=== PATIENT | female | born 1955 | race Caucasian/White ===

== ENCOUNTER 2017-06-03 07:19 | Emergency (ER) | payer BC ==
[2017-06-03 08:00] VITALS: BP 138/82
--- NOTE | 2017-06-03 12:05 | UC ---
Veena Boone Nilda, scribed for Mera Jorgensen DO on 06/03/17 at 0809 . Dizzy HPI HPI Summary: This patient is a 62 year old F presenting to [facility] [place] with a chief complaint of constant lightheadedness and nausea today. Two days ago, pt c/o headache and vomiting. Yesterday morning, pt had dizziness. She does not remember experiencing any room spinning. She is not experiencing room spinning currently but continues to have nausea, cordova and dizziness(not "feeling right". Symptoms were alleviated by lying down and aggravated by standing. Patient reports weakness and fatigue. Patient denies syncope, CP, SOB, unsteadiness, speech issues, sore throat, and loss of appetite. Pt states that during previous similar episodes (wherein she was dx with vertigo)she never really felt the room was spinning but had a "funny feeling in her head." PMHx includes thyroid disorder, arthritis, and questionable dx of vertigo. - History Of Current Complaint Chief Complaint: UCGeneralIllness Stated Complaint: VOMITTING Time Seen by Provider: 06/03/17 07:44 Hx Obtained From: Patient Onset/Duration: Sudden Onset, Lasting Days - 2 days, Still Present Timing: Constant Severity Currently: Moderate Character: Lightheaded, Weak, Dizzy Aggravating Factor(s): Supine To Erect Alleviating Factor(s): Rest Associated Signs And Symptoms: Positive: Nausea, Vomiting. Negative: Chest Pain , SOB - Allergies/Home Medications Allergies/Adverse Reactions: Allergies Allergy/AdvReac Type Severity Reaction Status Date / Time Sulfa Drugs Allergy Intermediate Rash Verified 06/03/17 07:28 Acetaminophen [From Percocet] Allergy N/V Verified 06/03/17 07:28 Hydrocodone [From Vicodin] Allergy N/V Verified 06/03/17 07:28 Oxycodone [From Percocet] Allergy N/V Verified 06/03/17 07:28 Tramadol Allergy N/V Verified 06/03/17 07:28 Home Medications: Home Medications celeCOXIB CAP* [Celebrex CAP*] 200 mg PO DAILY 06/03/17 [History Confirmed 06/03] PMH/Surg Hx/FS Hx/Imm Hx Endocrine History: Thyroid Disease Neurological History: Other - vertigo Other Neurological History: questionable dx of vertigo - Surgical History Surgical History: Yes Surgery Procedure, Year, and Place: 11/2013 [place] [facility] [place], [facility]. 10/2015 [place] [facility] [place] [facility] [place] [facility] [place] Ulnar Nerve Decompression. 1984 [place] [facility] [place] [facility] [place] - Family History Known Family History: Positive: Cardiac Disease, Other - breast CA - Social History Alcohol Use: None Substance Use Type: None Smoking Status (MU): Never Smoked Tobacco Have You Smoked in the Last Year: No - Immunization History Most Recent Influenza Vaccination: Not UTD Most Recent Tetanus Shot: UNKNOWN Most Recent Pneumonia Vaccination: NONE Review of Systems Constitutional: Fatigue Respiratory: Other - negative SOB Cardiovascular: Other - negative CP Gastrointestinal: Vomiting, Nausea, Other - negative loss of appetite Neurological: Headache, Weakness, Other - dizziness, lightheadedness; negative syncope, unsteadiness, speech issues All Other Systems Reviewed And Are Negative: Yes Physical Exam Triage Information Reviewed: Yes Appearance: Well-Appearing, Well-Nourished, Pain Distress - mild Vital Signs: Initial Vital Signs Temp 98.4 F 06/03/17 07:21 Pulse 68 06/03/17 07:21 Resp 18 06/03/17 07:21 BP 177/74 06/03/17 07:21 Pulse Ox 96 06/03/17 07:21 Vital Signs Reviewed: Yes Eyes: Positive: Conjunctiva Clear. Negative: Discharge ENT: Positive: Hearing grossly normal, TMs normal. Negative: Muffled voice, Hoarse voice Neck exam: Normal Neck: Positive: Supple Respiratory: Positive: Lungs clear, Normal breath sounds, No respiratory distress, No accessory muscle use Cardiovascular: Positive: RRR, No Murmur Abdomen Description: Positive: Nontender, Soft. Negative: Distended, Guarding Bowel Sounds: Positive: Present Musculoskeletal Exam: Normal Neurological: Positive: Alert, Muscle Tone Normal, Other: - A&Ox3, CN II-XII INTACT, SENSORY MOTOR INTACT, REFLEXES INTACT, NO CEREBELLAR SIGNS, FACIAL SYMMETRY, NEGATIVE ROMBERG, NORMAL GAIT Psychological Exam: Normal Psychological: Positive: Age Appropriate Behavior Skin Exam: Normal Skin: Positive: Other - warm, dry, normal color Diagnostics - EKG Cardiac Rate: NL Cardiac Rhythm: Sinus: Normal - at 64 bpm Ectopy: None ST Segment: Normal Dizzy Course/Dx - Course Course Of Treatment: This patient is a 62 year old F presenting to [facility] with a chief complaint of constant lightheadedness and nausea today. Two days ago, pt c /o headache and vomiting. Yesterday morning, pt had dizziness. She is unsure if the room was spinning. Symptoms were alleviated by lying down and aggravated by standing. Patient reports weakness and fatigue. Patient denies syncope, CP, SOB , unsteadiness, speech issues, sore throat, and loss of appetite. Pt states that during previous similar episodes she never really felt the room was spinning but had a funny feeling in her head. PMHx includes thyroid disorder, arthritis, and vertigo. Pending EKG. An EKG reveals NSR, 64 bpm, no ectopy, and no ST changes. [address] Valderrama (ED Physcician) to give report on pt. Pt is stable and will be transferred to ED with a diagnosis of lightheadedness, nausea, vomiting, and headache. She was given the following D/ C instructions: You have headache, dizziness, and nausea. Those symptoms make us concerned that there may be something going on with your heart or your brain. We want to make sure that you are safe. So, you need a complete evaluation in the emergency room. We have recommended that you go to the ER by ambulance so that if something happens between here and there you would have a trained professional to help you. You have refused. We have also recommended that you chew baby aspirin before you leave because that is beneficial in for people having heart problems. You have refused this as well. The risks associated with your condition are damage to the heart, cardiac arrest, cardiac arrhythmia, permanent neurological deficit, brain damage, and . Pt understands and is agreeable with this plan. - Differential Dx/Diagnosis Provider Diagnoses: lightheadedness, nausea, vomiting, and headache. - Physician Notifications Discussed Patient Care With: Mayco Valderrama - ED Physician Time Discussed With Above Provider: 07:36 Instructed by Provider To: Other - gave report on pt. Discharge - Discharge Plan Condition: Stable Disposition: AGAINST MEDICAL ADVICE Patient Education Materials: Lightheadedness (ED) Referrals: Luanne Khanna MD [Primary Care Provider] - Additional Instructions: You have headache, dizziness, and nausea. Those symptoms make us concerned that there may be something going on with your heart or your brain. We want to make sure that you are safe, so you need a complete evaluation in the emergency room. We have recommended that you go to the ER by ambulance so that if something happens between here and there you would have a trained professional to help you. You have refused. We have also recommended that you chew baby aspirin before you leave because that is beneficial for people having heart problems. You have refused this as well. The risks associated with your condition are damage to the heart, cardiac arrest, cardiac arrhythmia, permanent neurological deficit, brain damage, and . The documentation as recorded by the Veena gutierrez Nilda accurately reflects the service I personally performed and the decisions made by me, Mera Jorgensen DO.
== END 2017-06-03 08:17 | disposition left against medical advice (07) ==
LOC: UCEAST 07:19
DX: R42 Dizziness and giddiness (principal); R11.2 Nausea with vomiting, unspecified; R51 Headache; R94.31 Abnormal electrocardiogram [ECG] [EKG]; Z88.2 Allergy status to sulfonamides; Z88.5 Allergy status to narcotic agent
CPT/HCPCS: 93005; 99212; G0463

== ENCOUNTER 2017-06-03 08:39 | Emergency (ER) | payer BC ==
[2017-06-03] MEDS ORDERED: Ondansetron INJ* 2 MG/ML VIAL IV ONE (11:15)
[2017-06-03] MEDS ORDERED: NS 0.9% 1000 ML* 1,000 ML IV ONE (11:15)
[2017-06-03 11:41] LABS: Hematocrit 49 % (35-47); Hemoglobin 16.5 g/dl (12.0-16.0); Mean Corpuscular HGB Conc 34 g/dl (31-36); Mean Corpuscular Hemoglobin 31 pg (27-31); Mean Corpuscular Volume 91 fL (80-97); Mean Platelet Volume 8 um3 (7.4-10.4); Red Blood Count 5.37 10^6/ul (4.0-5.4); Red Cell Distribution Width 14 % (10.5-15); White Blood Count 7.2 10^3/ul (3.5-10.8)
--- NOTE | 2017-06-03 11:44 | RAD ---
INDICATION: Dizziness and vomiting. COMPARISON: Comparison is made with a prior chest x-ray study from October 17, 2015. TECHNIQUE: A portable view of the chest was obtained. FINDINGS: Cardiac and mediastinal contours appear to be within normal limits. The lungs are clear. No pleural effusion is seen. IMPRESSION: NO EVIDENCE FOR ACUTE DISEASE.
--- NOTE | 2017-06-03 11:52 | RAD ---
INDICATION: Dizziness COMPARISON: None TECHNIQUE: Noncontrast axial source images were acquired from the skull base to the vertex. FINDINGS: Ventricles/sulci: The ventricles and cisterns are normal in size and configuration for age. Brain parenchyma: There is no focal parenchymal finding, evidence of intracranial mass, or intracranial mass effect. Intracranial hemorrhage:None. Extra-axial spaces: There are no abnormal extra axial fluid collections or evidence of extra-axial mass. Calvarium: There is no calvarial fracture or other calvarial abnormality. Scalp: There is no evidence of scalp or extracalvarial soft tissue abnormality. Paranasal sinuses/mastoid: The paranasal sinuses and mastoid air cells are clear. Other: None. IMPRESSION: NEGATIVE EXAMINATION
[2017-06-03 11:54] LABS: Albumin 4.3 g/dL (3.2-5.2); BUN/Creatinine Ratio 24.7 (8-20); C Reactive Protein 5.1 mg/L (< 5.00); Calcium 9.4 mg/dL (8.6-10.3); EGFR African American 104.6 (>60); EGFR Non-African American 81.3 (>60); Globulin 3.1 g/dL (2-4); Magnesium 2.5 mg/dL (1.9-2.7); Potassium 3.7 mmol/L (3.5-5.0); Total Bilirubin 1.5 mg/dL (0.2-1.0); Total Protein 7.4 g/dL (6.4-8.9)
[2017-06-03 13:43] VITALS: BP 131/61
--- NOTE | 2017-06-03 21:10 | ED ---
Ange Boone Alfonso, scribed for Radha Owens MD on 06/03/17 at 1028 . Dizziness - HPI Summary HPI Summary: This patient is a 62 year old F presenting referred from [facility] to [facility] with a chief complaint of dizziness since 2 days ago, improved since yesterday. She states my head just doesnt feel right it feels funny. I have had vertigo before and I thought it was something like motion sickness. Pt was evaluated in and advised to come to the ED via ambulance and to have ASA and pt refused both, arrived by private car. The patient rates the pain 6/10 in severity. Symptoms aggravated by standing up. Symptoms alleviated by lying down. Patient reports vomiting, generalized weakness, and fatigue. Patient denies abdominal pain, headache, fever, syncope, CP, SOB, cough, unsteadiness, speech issues, sore throat, and loss of appetite. She was seen at [facility] earlier today with provider diagnoses of lightheadedness, nausea, vomiting, and headache. Patient reports she is always bradycardic between 45 to 65 BPM and she is aware of this because of her her fit bit. - History Of Current Complaint Chief Complaint: EDDizziness Stated Complaint: DIZZINESS -CC TRANSFER Hx Obtained From: Patient Onset/Duration: Still Present Timing: Constant Severity Initially: Moderate Severity Currently: Moderate - 6/10 pain Character: Lightheaded Aggravating Factor(s): Position Change Alleviating Factor(s): Lying Down Associated Signs And Symptoms: Positive: Vomiting, Other: - vomiting, generalized weakness, and fatigue. Patient denies abdominal pain, headache, fever, syncope, CP, SOB, cough, unsteadiness, speech issues, sore throat, and loss of appetite. She was seen at [facility] earlier today with provider diagnoses of lightheadedness, nausea, vomiting, and headache. - Allergies/Home Medications Allergies/Adverse Reactions: Allergies Allergy/AdvReac Type Severity Reaction Status Date / Time Sulfa Drugs Allergy Intermediate Rash Verified 06/03/17 07:28 Acetaminophen [From Percocet] Allergy N/V Verified 06/03/17 07:28 Hydrocodone [From Vicodin] Allergy N/V Verified 06/03/17 07:28 Oxycodone [From Percocet] Allergy N/V Verified 06/03/17 07:28 Tramadol Allergy N/V Verified 06/03/17 07:28 Home Medications: Home Medications Calcium 500 mg PO DAILY 06/03/17 [History Confirmed 06/03/17] Levothyroxine TAB* [Synthroid TAB*] 50 mcg PO QAM 06/03/17 [History Confirmed ] Multivitamins/Minerals TAB* [Theragran/minerals TAB*] 1 tab PO DAILY 06/03/17 [ History Confirmed 06/03/17] Omeprazole CAP* [Prilosec CAP* 20 MG] 20 mg PO DAILY 06/03/17 [History Confirmed 06/03/17] PMH/Surg Hx/FS Hx/Imm Hx Endocrine/Hematology History: Reports: Hx Thyroid Disease Denies: Hx Diabetes Cardiovascular History: Reports: Hx Hypercholesterolemia Denies: Hx Hypertension, Hx Pacemaker/ICD, Other Cardiovascular Problems/ Disorders Respiratory History: Reports: Hx Sleep Apnea - current CPAP user, compliant GI History: Reports: Hx Gastroesophageal Reflux Disease - CONTROL WITH MEDS Denies: Other GI Disorders History: Denies: Hx Benign Prostatic Hyperplasia Musculoskeletal History: Reports: Hx Arthritis - Osteoarthritis of knees,, Hx Orthopedic Injury - left knee miniscus tear, repaired Denies: Other Musculoskeletal History Sensory History: Reports: Hx Contacts or Glasses - Reading glasses Denies: Hx Glaucoma, Hx Hearing Aid Opthamlomology History: Reports: Hx Contacts or Glasses - Reading glasses Denies: Hx Glaucoma Neurological History: Denies: Other Neuro Impairments/Disorders Psychiatric History: Reports: Hx Panic Disorder - Cancer History Hx Chemotherapy: No Hx Radiation Therapy: No - Surgical History Surgery Procedure, Year, and Place: 11/2013 LEFT KNEE MENISCUS REPAIR, [facility] [place]. 2014 RIGHT TOTAL KNEE REPLACEMENT, [facility] [place]. 10/2015 LEFT TOTAL KNEE REPLACEMENT, [facility] [place]. BILATERAL CARPAL TUNNEL RELEASE, [facility] [place]. 1995 HYSTERECTOMY, [facility] [place]; Right Ulnar Nerve Decompression. 1984 CHOLECYSTECTOMY WITH APPENDECTOMY, [facility] [place]. 1961 TONSILLECTOMY, [facility] [place] Hx Anesthesia Reactions: Yes - USUALLY B/P DROPS; 03/2015-VOMITING Infectious Disease History: No Infectious Disease History: Denies: Traveled Outside the [place] in Last 30 Days - Family History Known Family History: Positive: Cardiac Disease, Other - breast [place] - Social History Lives: With Family Alcohol Use: None Hx Substance Use: No Substance Use Type: Reports: None Hx Tobacco Use: No Smoking Status (MU): Never Smoked Tobacco Have You Smoked in the Last Year: No Review of Systems Positive: Fatigue, Other - generalized weakness. Negative: Fever Eyes: Negative Negative: Sore Throat Negative: Chest Pain Negative: Shortness Of Breath, Cough Positive: Vomiting. Negative: Abdominal Pain Skin: Negative Neurological: Other - dizziness; negative unsteadiness Negative: Headache, Syncope Psychological: Normal All Other Systems Reviewed And Are Negative: Yes Physical Exam Triage Information Reviewed: Yes Vital Signs On Initial Exam: Initial Vitals Temp Pulse Resp BP Pulse Ox 98.7 F 56 20 165/83 98 06/03/17 08:56 06/03/17 08:56 06/03/17 08:56 06/03/17 08:56 06/03/17 08:56 Vital Signs Reviewed: Yes Appearance: Positive: No Pain Distress, Ill-Appearing - Mild, Obese Skin: Positive: Warm, Skin Color Reflects Adequate Perfusion Head/Face: Positive: Normal Head/Face Inspection Eyes: Positive: Conjunctiva Clear ENT: Positive: Normal ENT inspection, Pharynx normal, TMs normal Neck: Positive: Supple, Nontender, No Lymphadenopathy Respiratory/Lung Sounds: Positive: Clear to Auscultation, Breath Sounds Present , Other - no respiratory distress Cardiovascular: Positive: RRR, Pulses are Symmetrical in both Upper and Lower Extremities, Other - brisk capillary refill. Negative: Murmur Abdomen Description: Positive: Nontender, No Organomegaly, Soft Bowel Sounds: Positive: Present Musculoskeletal: Positive: Strength/ROM Intact Neurological: Positive: Alert, Oriented to Person Place, Time, Facial Symmetry, Speech Normal, Other - muscle tone normal, facial symmetry, speech normal, sensory/motor intact Psychiatric: Positive: Normal - Byron Coma Scale Best Eye Response: 4 - Spontaneous Best Motor Response: 6 - Obeys Commands Best Verbal Response: 5 - Oriented Coma Scale Total: 15 Diagnostics - Vital Signs Vital Signs Temp Pulse Resp BP Pulse Ox 06/03/17 08:56 98.7 F 56 20 165/83 98 - Laboratory Lab Results: Lab Results 06/03/17 06/03/17 06/03/17 Range/Units 11:26 11:26 11:26 WBC 7.2 (3.5-10.8) 10^3/ul RBC 5.37 (4.0-5.4) 10^6/ul Hgb 16.5 H (12.0-16.0) g/dl Hct 49 H (35-47) % MCV 91 (80-97) fL MCH 31 (27-31) pg MCHC 34 (31-36) g/dl RDW 14 (10.5-15) % Plt Count 299 (150-450) 10^3/ul MPV 8 (7.4-10.4) um3 Neut % (Auto) 61.2 (38-83) % Lymph % (Auto) 30.9 (25-47) % Terrell % (Auto) 6.5 (1-9) % Eos % (Auto) 0.7 (0-6) % Baso % (Auto) 0.7 (0-2) % Absolute Neuts (auto) 4.4 (1.5-7.7) 10^3/ul Absolute Lymphs (auto) 2.2 (1.0-4.8) 10^3/ul Absolute Monos (auto) 0.5 (0-0.8) 10^3/ul Absolute Eos (auto) 0.1 (0-0.6) 10^3/ul Absolute Basos (auto) 0 (0-0.2) 10^3/ul Absolute Nucleated RBC 0.01 10^3/ul Nucleated RBC % 0.1 INR (Anticoag Therapy) 1.02 (0.77-1.02) Sodium 138 (133-145) mmol/L Potassium 3.7 (3.5-5.0) mmol/L Chloride 104 (101-111) mmol/L Carbon Dioxide 25 (22-32) mmol/L Anion Gap 9 (2-11) mmol/L BUN 18 (6-24) mg/dL Creatinine 0.73 (0.51-0.95) mg/dL Est GFR ( Amer) 104.6 (>60) Est GFR (Non-Af Amer) 81.3 (>60) BUN/Creatinine Ratio 24.7 H (8-20) Glucose 93 (70-100) mg/dL Lactic Acid (0.5-2.0) mmol/L Calcium 9.4 (8.6-10.3) mg/dL Magnesium 2.5 (1.9-2.7) mg/dL Total Bilirubin 1.50 H (0.2-1.0) mg/dL AST 14 (13-39) U/L ALT 14 (7-52) U/L Alkaline Phosphatase 61 (34-104) U/L Troponin I 0.00 (<0.04) ng/mL C-Reactive Protein 5.10 H (< 5.00) mg/L Total Protein 7.4 (6.4-8.9) g/dL Albumin 4.3 (3.2-5.2) g/dL Globulin 3.1 (2-4) g/dL Albumin/Globulin Ratio 1.4 (1-3) Amylase 22 L (29-103) U/L Lipase 10 L (11.0-82.0) U/L 06/03/17 Range/Units 11:26 WBC (3.5-10.8) 10^3/ul RBC (4.0-5.4) 10^6/ul Hgb (12.0-16.0) g/dl Hct (35-47) % MCV (80-97) fL MCH (27-31) pg MCHC (31-36) g/dl RDW (10.5-15) % Plt Count (150-450) 10^3/ul MPV (7.4-10.4) um3 Neut % (Auto) (38-83) % Lymph % (Auto) (25-47) % Terrell % (Auto) (1-9) % Eos % (Auto) (0-6) % Baso % (Auto) (0-2) % Absolute Neuts (auto) (1.5-7.7) 10^3/ul Absolute Lymphs (auto) (1.0-4.8) 10^3/ul Absolute Monos (auto) (0-0.8) 10^3/ul Absolute Eos (auto) (0-0.6) 10^3/ul Absolute Basos (auto) (0-0.2) 10^3/ul Absolute Nucleated RBC 10^3/ul Nucleated RBC % INR (Anticoag Therapy) (0.77-1.02) Sodium (133-145) mmol/L Potassium (3.5-5.0) mmol/L Chloride (101-111) mmol/L Carbon Dioxide (22-32) mmol/L Anion Gap (2-11) mmol/L BUN (6-24) mg/dL Creatinine (0.51-0.95) mg/dL Est GFR ( Amer) (>60) Est GFR (Non-Af Amer) (>60) BUN/Creatinine Ratio (8-20) Glucose (70-100) mg/dL Lactic Acid 0.8 (0.5-2.0) mmol/L Calcium (8.6-10.3) mg/dL Magnesium (1.9-2.7) mg/dL Total Bilirubin (0.2-1.0) mg/dL AST (13-39) U/L ALT (7-52) U/L Alkaline Phosphatase (34-104) U/L Troponin I (<0.04) ng/mL C-Reactive Protein (< 5.00) mg/L Total Protein (6.4-8.9) g/dL Albumin (3.2-5.2) g/dL Globulin (2-4) g/dL Albumin/Globulin Ratio (1-3) Amylase (29-103) U/L Lipase (11.0-82.0) U/L Result Diagrams: 06/03/17 11:26 06/03/17 11:26 Lab Statement: Any lab studies that have been ordered have been reviewed, and results considered in the medical decision making process. - Radiology CXR Radiology Interpretation Completed By: Radiologist - NO EVIDENCE FOR ACUTE DISEASE. ED physician has reviewed this radiology report. - CT Brain CT Interpretation Completed By: Radiologist - NEGATIVE EXAMINATION. ED physician has reviewed this radiology report. - EKG 0904 Cardiac Rate: Bradycardia EKG Rhythm: Sinus Bradycardia - 56 BPM EKG Interpretation: Nml AV/IV CT, Qtc, axis. NAC. Inverted T-wave in III. EKG Comparison: No Significant Change - 10/17/15 and 0736 earlier today. Re-Evaluation - Re-Evaluation First Eval Re-Evaluation Time: 13:24 Change: Improved Comment: She reports feeling better in the ED course. She is feeling much better and feels comfortable with discharge. Dizzy Course/Dx - Course Assessment/Plan: Patients medications reviewed this visit. In the ED course the patient had labs, EKG, CXR and brain CT. She was given IV fluids and Zofran. Patient will be discharged with dx vertigo, and follow up from PCP. The patient is agreeable with this plan. - Diagnoses Differential Diagnosis/HQI/PQRI: Anxiety, Benign Paroxysmal Positional Vertigo, Coronary Artery Disease, CVA, Dysrhythmia, Labyrinthitis, Meniere's Disease, Metabolic Abnormality, Myocardial Infarction, Transient Ischemic Attack Provider Diagnoses: Dizziness, Bradycardia, Elevated bilirubin Discharge - Discharge Plan Condition: Stable Disposition: HOME Patient Education Materials: Dizziness (ED) Forms: *Work Release Referrals: Maureen Patel NP [Primary Care Provider] - Additional Instructions: Your CT brain was normal today and there was no sign of a heart attack. We feel you are a safe discharge. Your heart rate was 55-60 but you state this is normal for you. Your bilirubin was elevated at 1.5 (normal is 1.0), but this is probably a hereditary condition called Gilbert's disease, and is not significant for your symptoms of dizziness. You should follow up with your doctor as needed. RETURN TO THE EMERGENCY DEPARTMENT FOR CHANGING OR WORSENING SYMPTOMS. The documentation as recorded by the Ange gutierrez Alfonso accurately reflects the service I personally performed and the decisions made by me, Radha Owens MD.
== END 2017-06-03 13:57 | disposition home or self-care (01) ==
LOC: ED 08:39
DX: R42 Dizziness and giddiness (principal); R00.1 Bradycardia, unspecified; E80.7 Disorder of bilirubin metabolism, unspecified; E07.9 Disorder of thyroid, unspecified; E78.00 Pure hypercholesterolemia, unspecified; G47.30 Sleep apnea, unspecified; Z88.2 Allergy status to sulfonamides; Z88.5 Allergy status to narcotic agent
CPT/HCPCS: 36415; 70450; 71010; 80053; 82150; 83605; 83690; 83735; 84484; 85025; 85610; 86140; 93005; 96360; 96374; 99283; J2405

== ENCOUNTER 2018-03-16 09:22 | Emergency (ER) | payer BC ==
--- OUTSIDE RECORDS SUMMARY | 2018-03-16 09:51 | XMS REPORT ---
:1955 External Reference #:[id number] Author Organization [facility] Address [address] [facility] [place] [address] Phone [phone] Care Team Providers Name Role Phone Luanne Khanna MD Primary Care Physician Unavailable Payers Type Date Identification Numbers Payment Provider Subscriber Commercial Effective: Policy Number: BS Facets Gilda Wilson 2012 [id number] Group Number: [id number] [address] Pay[address]: [id number] [address] Workers Onset: Policy Number: Luis Felipe Finleyise Compensation 2013 [id number] Kwame Wilson Group Number: [id number] [address] PayID: [place] [id number] Medigap Part B Effective: 2010 Policy Number: BS Of PIA Wilson [id number] Expires: 2012 Group Number: [id number] [address] Pay[address]: [id number] [address] Workers Effective: Policy Number: Briscoe Gilda Compensation 2016 [id number] Kwame Wilson Services Onset: 2016 PayID: MONTSE JULIAN [address] [place] [id number] Advance Directives Type Date Description Status Comment Other Directive 01/07/2017 Health Care Proxy Current and Verified Problems Date Description Provider Status Onset: 04/25/2011 Matthew Guerrae Varn, N.Alok Active Onset: 04/25/2011 Gastroesophageal reflux disease Maureen Patel N.P. Active Onset: 03/04/2015 Localized, primary osteoarthritis Eli Herrera M.D. Active Onset: 02/17/2016 Lesion of ulnar nerve Kyle Trinh MD Active Onset: 08/09/2016 Contusion of forearm Kyle Trinh MD Active Family History Date Family Member(s) Problem(s) Comments General Heart Disease General Cancer Father CAD Valve Replacement, Pacemaker age 86 Mother Breast Cancer (64) CAD, Atrial Fibrillation age 86 Mother Arthritis First Daughter Alive And Well First Brother Kidney Cancer (55) age 57 First Sister Alive And Well Age 64 Social History Type Date Description Comments Marital Status Lives With spouse Occupation [employer] Cigarette Use Never Smoked Cigarettes ETOH Use Denies alcohol use Smoking Patient has never smoked Recreational Drug Use Denies Drug Use Daily Caffeine Does Not Consume Caffeine Exercise Type/Frequency Exercises regularly Walking General Hx Text Do you follow a special diet: no regular diet Do you have problems with snoring, daytime fatigue: witness snores on CPAP machine, yes daytime fatigue. Allergies, Adverse Reactions, Alerts Date Description Reaction Status Severity Comments 09/26/2010 Sulfa active rash 10/15/2011 Vicodin Nausea and Vomiting active Moderate to Severe 08/17/2015 Tramadol active 08/17/2015 Percocet active Medications Medication Date Status Form Strength Qnty SIG Indications Ordering Provider Meclizine HCL 01/10 Active Tablets 25mg 30tab 1 tablet H81.49 s every 8 Varn, N.P. hours as needed for vertigo Amoxicillin 01/22 Active Tablets 500mg 12tab 4 tab by s mouth one Bordoni, hour prior [employer] to invasive procedure Compression 11/01 Active Misc wear during Z47.1 Eli Stock day, off at [facility], night dx- M.D. ble edema Levothyroxine 07/13 Active Tablets 50mcg 30tab take 1 Abi s tablet once Eloise, daily M.D., FACP Omeprazole 05/[address] 20mg 30cap take 1 Luanne /2010 s capsule Cotton, once daily M.D. Womens Multi Active Capsules daily ( Unknown Gummi Vitamin D 800 Iu in Gummie) Calcium Active 500mg 1 po qd Vit C Active Tablets 500mg 1 po qd Proair HFA Active Aerosol 108(90Bas as needed e) mcg/Act Celecoxib Active Capsules 200mg 90cap 1 by mouth s every day Varn, N.P. Coq10 Active Capsules 400mg 1 by mouth every day Cpap Active Device for use while sleeping Cephalexin 09/21 Hx Capsules 500mg 28cap take one L03.90 Loco s capsule ELLIOT Noble - every 6 09/27 hours for days Acetaminophen-C 06/04 Hx Tablets 300-30mg 45tab take one Zaneb odeine # s tab by MD Ziggy - mouth every 07/05 6 hours needed for pain Keflex 06/04 Hx Capsules 500mg 20cap 1 by mouth s 4 times a MD Ziggy - day for 5 Celebrex 04/23 Hx Capsules 200mg 60cap 1 by mouth s twice daily Varn, N.P. - 01/07 Lotrisone 01/02 Hx Cream 1-0.05% 15gm apply N76.2 externally Varn, N.P. - bid-tid ( 01/10 Pt does use) Dilaudid 10/27 Hx Tablets 2mg 30tab 1 tab q6 Licha /2016 s hours as Bordoni, - needed pain [employer] 12/10 Keflex 10/27 Hx Capsules 500mg 40cap 1 by mouth Licha /2016 s four times Bordoni, - a day for [employer] 12/10 Transderm-Scop 10/27 Hx Patches 1mg/3Days 3unit apply one Licha (1.5 MG) 72HR s patch for Bordoni, - 72 hours [employer] 01/21 Acetaminophen-C 10/16 Hx Tablets 300-30mg 60tab 1-2 tab by M17.12 Licha odeine #3 s mouth every Bordoni, - 4-6 hours [employer] 12/10 as needed for pain Coumadin 10/16 Hx Tablets 2mg 45tab 1 by mouth s daily post Bordoni, - operatively [employer] 12/10 or directed by marga/. do not take this medication prior to surgery Augmentin 08/17 Hx Tablets 875-125mg 20tab one by J20.9 s mouth every Varn, N.P. - 12 hours 08/26 for days Fluticasone 08/17 Hx Suspension 50mcg/Act 16uni 2 sprays J20.9 ts each Varn, N.P. - nostril 08/30 daily needed Flovent HFA 08/17 Hx Aerosol 110mcg/Ac 12gm 2 puffs J20.9 t twice daily Varn, N.P. - 08/30 Prednisone 08/13 Hx Tablets 20mg bid x 5 days - 08/18 Tramadol HCL 04/29 Hx Tablets 50mg 90tab 1 or 2 Eli s tablets by Javier, - mouth every M.D. 11/12 6 hours needed pain Cheratussin ac 03/31 Hx Syrup 100-10mg/ 118ml take 5-10 J20.9 5ML milliliters Real, [employer] - every 4-6 10/12 hours needed for cough. Azithromycin 03/31 Hx Tablets 250mg 6tabs 2 tabs by J20.9 mouth every Real, [employer] - day x1 day, 04/06 1 tab by mouth every day x 4 days Advair HFA 03/28 Hx Aerosol 115-21mcg 8gm 2 puffs R05 Loco /2014 /Act twice daily Real, [employer] - for two Coumadin 03/18 Hx Tablets 2mg 45tab 1 by mouth M17.11 s daily post Bordoni, - operatively [employer] 06/24 or directed by marga/. do not take this medication prior to surgery Percocet 03/18 Hx Tablets 5-325mg 90tab 1-2 tablets M17.11 s by mouth Bordoni, - every 4-6 [employer] 11/12 hours needed for pain Penlac 03/16 Hx Solution 8% 6.600 apply to B35.1 ml toenails at Varn, N.P. - bedtime 08/17 Estroven Mood & 12/31 Hx Tablets Varn, N.P. - 03/16 Celebrex 11/02 Hx Capsules 200mg 60cap 1 by mouth s twice daily Varn, N.P. - 10/15 Gabapentin 09/29 Hx Capsules 100mg 90cap 1 po hs x 3 s 2 po has x Varn, N.P. - 3 then: 3 12/31 po hs Azithromycin 07/07 Hx Tablets 250mg 6tabs two tabs 461.9 day one, Varn, N.P. - one daily 07/17 till Fluticasone 07/07 Hx Suspension 50mcg/Act 16gm 2 sprays 461.9 each Varn, N.P. - nostril 07/21 daily needed Mupirocin 11/25 Hx Ointment 2% 22gm Apply inside each Varn, N.P. - nostril bid 11/30 x 5 Azithromycin 11/13 Hx Tablets 250mg 6tabs two tabs 466.0 day one, Varn, N.P. - one daily 11/23 till Fluticasone 11/13 Hx Suspension 50mcg/Act 16gm 2 sprays 466.0 Propionate each Varn, N.P. - nostril 11/27 daily until better Naproxen 08/25 Hx Tablets 500mg 60tab 1 by mouth s every 12 Javier, - hours as M.D. 12/31 needed pain /2014 MDD 1 Tramadol HCL 07/14 Hx Tablets 50mg 30tab 1-2 po q Aristeo s 4-6hr prhermilo Valerio - pain M.D. 07/07 Meloxicam 03/06 Hx Tablets 7.5mg 60tab 1 - 2 s tablets po Varn, N.P. - daily by 05/05 mouth day Amoxicillin/Pot 02/10 Hx Tablets 875-125mg 20tab 1 po bid 466.0 s for 10 days Varn, N.P. Clavulanate - 02/20 Medrol Dosepak 02/10 Hx Tablets 4mg 1pak as directed 466.0 Varn, N.P. - 02/16 Azithromycin 01/20 Hx Tablets 250mg 6tabs two tabs 465.9 day one, Varn, N.P. - one daily 01/30 till Clobetasol 12/29 Hx Cream 0.05% 60gm apply to 616.10 affected Varn, N.P. Emollient - area twice 03/16 daily up 2 weeks. stop for 2 weeks and repeat prn Trazodone HCL 08/11 Hx Tablets 50mg 30tab take 1 G47.00 s tablet by Varn, N.P. - mouth at 01/21 bedtime needed Ergocalciferol 07/25 Hx Capsules 23146Iuun 8caps one po once 719.49 weekly Varn, N.P. - 09/23 Tramadol HCL 07/25 Hx Tablets 50mg 60tab 1 tablet 719.49 s three to Varn, N.P. - four times 07/01 daily needed Gabapentin 07/25 Hx Capsules 300mg 30cap 1 capsule 719.49 s at bedtime Varn, N.P. - 08/11 Ciclopirox Nail 07/31 Hx Solution 8% 6.6ml apply to 110.1 Abi Lac entire nail Melissa Navas, FACP 07/25 skin until clear Keflex 10/12 Hx Capsules 500mg 21cap 1 po tid s for 7 days Mike Navas M.D., FACP 04/25 Crestor 09/26 Hx Tablets 5mg 30tab take 1 Luanne /2011 s tablet once Cotton, - daily M.D. 12/31 Meclizine HCL Hx Tablets 25mg 60tab 1 po every Unknown / s 8 hrs prn - 05/29 Multi Complete Hx Capsules daily Unknown - 07/25 Acetaminophen Hx Capsules 500mg 2 po at hs Unknown - 07/07 Celebrex Hx Capsules 200mg 30cap take 1 Abi s capsule Eloise, - once daily M.D., FACP 07/01 if needed /2013 for pain Vit D Hx 2000Iu Unknown - 09/10 Coq-10 Hx Capsules 200mg 1 by mouth Unknown every day - 08/17 Doxycycline Hx Capsules 100mg bid Unknown Hycl - 08/17 Medications Administered in Office Medication Date Status Form Strength Qnty SIG Indications Ordering Provider Depomedrol Administered Injection Eli 80MG 015 Kevin Herrera Depomedrol Administered Injection Eli 80MG 015 Kevin Herrera Depomedrol Administered Injection Faith H. 80MG 014 Rl Daniel Depomedrol Administered Injection Eli 80MG 014 Kevin Herrera Depomedrol Administered Injection Lorie 80MG 014 MIKI Mena Depomedrol Administered Injection Aristeo Valerio 80MG 013 Kevin Immunizations CPT Code Status Date Vaccine Reaction Lot # [id number] Given 01/10/2018 Tetanus And Diptheria (Td) No immediate [id number] For Adult Use Preservative reaction..jh Free 51061 Given 03/16/2015 Influenza Virus Vaccine, [id number] Quadrivalent, Split, Preservative Free 64433 Given 04/25/2011 Influenza Virus 3Yrs & [id number] Over 61673 Given 06/14/2009 Influenza Virus 3Yrs & Over 40984 Given 06/07/2008 Tdap - Tetanus/Diptheria/Acellula r Pertussis [id number] Given 06/07/2008 Influenza Virus 3Yrs & Over Vital Signs Date Vital Result Comment 03/11/2018 Height 64 inches 5'4" Heart Rate 58 /min Body Temperature 97.3 F O2 % BldC Oximetry 96 % 01/10/2018 Height 64 inches 5'4" Weight 241.00 lb Heart Rate 61 /min BP Systolic 130 mmHg BP Diastolic 80 mmHg Body Temperature 98.0 F O2 % BldC Oximetry 96 % BMI (Body Mass Index) 41.4 kg/m2 10/03/2017 Height 64 inches 5'4" Weight 241.00 lb BP Systolic 120 mmHg BP Diastolic 74 mmHg Respiratory Rate 18 /min Pain Level 0 BMI (Body Mass Index) 41.4 kg/m2 09/24/2017 Height 64 inches 5'4" Heart Rate 62 /min BP Systolic 132 mmHg BP Diastolic 80 mmHg Respiratory Rate 16 /min Pain Level 1 09/11/2017 Height 64 inches 5'4" Weight 241.00 lb BP Systolic 132 mmHg rue lg cuff BP Diastolic 70 mmHg rue lg cuff BP Systolic Sitting 122 mmHg lue lg cuff BP Diastolic Sitting 70 mmHg lue lg cuff BP Systolic Standing 120 mmHg lue lg cuff BP Diastolic Standing 70 mmHg lue lg cuff Respiratory Rate 16 /min BMI (Body Mass Index) 41.4 kg/m2 08/19/2017 Weight 237.00 lb Heart Rate 76 /min BP Systolic 130 mmHg BP Diastolic 80 mmHg Body Temperature 97.2 F O2 % BldC Oximetry 96 % 02/19/2017 Height 66.5 inches 5'6.50" Weight 232.00 lb Heart Rate 65 /min BP Systolic 117 mmHg BP Diastolic 69 mmHg Body Temperature 96.7 F Pain Level 0 BMI (Body Mass Index) 36.9 kg/m2 01/25/2017 Height 65 inches 5'5" Weight 235.00 lb BP Systolic 124 mmHg BP Diastolic 74 mmHg Respiratory Rate 18 /min Body Temperature 97.3 F Pain Level 0 BMI (Body Mass Index) 39.1 kg/m2 01/07/2017 Height 65.5 inches 5'5.50" Weight 237.50 lb Heart Rate 69 /min BP Systolic 128 mmHg BP Diastolic 80 mmHg Body Temperature 96.5 F O2 % BldC Oximetry 98 % BMI (Body Mass Index) 38.9 kg/m2 12/12/2016 Height 65.5 inches 5'5.50" Weight 232.00 lb BP Systolic 142 mmHg BP Diastolic 87 mmHg Respiratory Rate 15 /min Pain Level 0 BMI (Body Mass Index) 38.0 kg/m2 12/11/2016 Height 65.5 inches 5'5.50" Weight 232.00 lb Heart Rate 62 /min BP Systolic 132 mmHg BP Diastolic 80 mmHg Respiratory Rate 15 /min Body Temperature 97.4 F Pain Level 0 BMI (Body Mass Index) 38.0 kg/m2 11/15/2016 Height 65.5 inches 5'5.50" Weight 232.00 lb Heart Rate 55 /min BP Systolic 129 mmHg BP Diastolic 73 mmHg Body Temperature 97.5 F Pain Level 3 BMI (Body Mass Index) 38.0 kg/m2 10/04/2016 Height 65.5 inches 5'5.50" Weight 235.00 lb Heart Rate 64 /min BP Systolic 128 mmHg BP Diastolic 71 mmHg Respiratory Rate 15 /min Pain Level 4 BMI (Body Mass Index) 38.5 kg/m2 09/21/2016 Weight 236.00 lb Heart Rate 71 /min BP Systolic Sitting 124 mmHg BP Diastolic Sitting 86 mmHg Body Temperature 98.2 F O2 % BldC Oximetry 99 % 09/11/2016 Height 65.5 inches 5'5.50" Weight 230.00 lb Heart Rate 68 /min BP Systolic Sitting 132 mmHg BP Diastolic Sitting 76 mmHg Respiratory Rate 16 /min Pain Level 0 BMI (Body Mass Index) 37.7 kg/m2 08/28/2016 Height 65.5 inches 5'5.50" Weight 230.00 lb Respiratory Rate 16 /min Pain Level 0 BMI (Body Mass Index) 37.7 kg/m2 08/09/2016 Height 65.5 inches 5'5.50" Weight 230.00 lb Heart Rate 67 /min BP Systolic Sitting 122 mmHg BP Diastolic Sitting 83 mmHg Respiratory Rate 16 /min Body Temperature 98.1 F Pain Level 5 BMI (Body Mass Index) 37.7 kg/m2 08/09/2016 Height 65.5 inches 5'5.50" Weight 230.00 lb Pain Level 5 BMI (Body Mass Index) 37.7 kg/m2 07/06/2016 Height 65.5 inches 5'5.50" Weight 230.00 lb Respiratory Rate 16 /min Pain Level 0 + numbness BMI (Body Mass Index) 37.7 kg/m2 06/14/2016 Height 65.5 inches 5'5.50" Weight 230.00 lb Body Temperature 98.3 F BMI (Body Mass Index) 37.7 kg/m2 05/24/2016 Height 65.5 inches 5'5.50" Weight 235.00 lb Respiratory Rate 16 /min Pain Level 5 BMI (Body Mass Index) 38.5 kg/m2 03/23/2016 Height 65.5 inches 5'5.50" Weight 235.00 lb Heart Rate 60 /min Respiratory Rate 16 /min Pain Level 0 + Numbness BMI (Body Mass Index) 38.5 kg/m2 02/17/2016 Height 65.5 inches 5'5.50" Weight 235.00 lb Heart Rate 64 /min BP Systolic Sitting 122 mmHg BP Diastolic Sitting 74 mmHg Respiratory Rate 16 /min Pain Level 3 BMI (Body Mass Index) 38.5 kg/m2 01/23/2016 Height 65 inches 5'5" Weight 235.00 lb Heart Rate 60 /min Respiratory Rate 16 /min Pain Level 0 BMI (Body Mass Index) 39.1 kg/m2 01/03/2016 Height 63.5 inches 5'3.50" Weight 232.25 lb Heart Rate 64 /min BP Systolic Sitting 134 mmHg BP Diastolic Sitting 71 mmHg O2 % BldC Oximetry 98 % BMI (Body Mass Index) 40.5 kg/m2 12/12/2015 Height 65 inches 5'5" Weight 235.00 lb Pain Level 0 BMI (Body Mass Index) 39.1 kg/m2 11/11/2015 Height 65 inches 5'5" Weight 235.00 lb Pain Level 1 just stiff BMI (Body Mass Index) 39.1 kg/m2 11/02/2015 Height 65 inches 5'5" Weight 235.00 lb Body Temperature 97.8 F Pain Level 6 BMI (Body Mass Index) 39.1 kg/m2 10/17/2015 Height 65 inches 5'5" Weight 235.00 lb Heart Rate 61 /min BP Systolic 132 mmHg BP Diastolic 79 mmHg Body Temperature 97.1 F BMI (Body Mass Index) 39.1 kg/m2 10/05/2015 Height 65 inches 5'5" Weight 238.00 lb Heart Rate 70 /min BP Systolic Sitting 128 mmHg BP Diastolic Sitting 80 mmHg Respiratory Rate 15 /min Body Temperature 97.7 F O2 % BldC Oximetry 97 % BMI (Body Mass Index) 39.6 kg/m2 08/17/2015 Height 65 inches 5'5" Weight 231.00 lb Heart Rate 66 /min BP Systolic Sitting 126 mmHg BP Diastolic Sitting 74 mmHg Respiratory Rate 16 /min Body Temperature 96.1 F Pain Level 0 O2 % BldC Oximetry 97 % BMI (Body Mass Index) 38.4 kg/m2 06/27/2015 Height 65 inches 5'5" Weight 229.00 lb Pain Level 0 BMI (Body Mass Index) 38.1 kg/m2 05/25/2015 Height 65 inches 5'5" Weight 229.00 lb Pain Level 4 BMI (Body Mass Index) 38.1 kg/m2 05/06/2015 Height 65 inches 5'5" Weight 229.00 lb BMI (Body Mass Index) 38.1 kg/m2 04/29/2015 Height 65 inches 5'5" Weight 229.00 lb Pain Level 5 BMI (Body Mass Index) 38.1 kg/m2 04/08/2015 Height 65 inches 5'5" Weight 229.00 lb Heart Rate 91 /min BP Systolic Sitting 118 mmHg BP Diastolic Sitting 81 mmHg Pain Level 3 BMI (Body Mass Index) 38.1 kg/m2 03/31/2015 Weight 229.00 lb Heart Rate 86 /min BP Systolic Sitting 155 mmHg BP Diastolic Sitting 97 mmHg Body Temperature 97.4 F O2 % BldC Oximetry 97 % 03/28/2015 Height 65 inches 5'5" Weight 234.25 lb Heart Rate 89 /min BP Systolic 126 mmHg BP Diastolic 79 mmHg Body Temperature 98.5 F O2 % BldC Oximetry 95 % BMI (Body Mass Index) 39.0 kg/m2 03/18/2015 Height 65 inches 5'5" Weight 234.00 lb Heart Rate 58 /min BP Systolic Sitting 126 mmHg BP Diastolic Sitting 85 mmHg Pain Level 8 BMI (Body Mass Index) 38.9 kg/m2 03/16/2015 Weight 232.00 lb Heart Rate 68 /min BP Systolic Sitting 139 mmHg BP Diastolic Sitting 83 mmHg Body Temperature 97.2 F 03/04/2015 Height 65 inches 5'5" Weight 234.00 lb Pain Level 10 rightt, 7 left BMI (Body Mass Index) 38.9 kg/m2 01/17/2015 Height 65 inches 5'5" Weight 234.00 lb Heart Rate 67 /min BP Systolic 144 mmHg BP Diastolic 82 mmHg Pain Level 7 BMI (Body Mass Index) 38.9 kg/m2 12/31/2014 Height 65 inches 5'5" Weight 234.00 lb Heart Rate 64 /min BP Systolic Sitting 138 mmHg BP Diastolic Sitting 81 mmHg Body Temperature 96.6 F BMI (Body Mass Index) 38.9 kg/m2 11/02/2014 Height 66 inches 5'6" Weight 236.00 lb Heart Rate 60 /min BP Systolic 129 mmHg BP Diastolic 74 mmHg Body Temperature 97.2 F BMI (Body Mass Index) 38.1 kg/m2 09/29/2014 Height 66 inches 5'6" Weight 234.00 lb Heart Rate 64 /min BP Systolic 134 mmHg BP Diastolic 81 mmHg Body Temperature 97.3 F BMI (Body Mass Index) 37.8 kg/m2 08/16/2014 Height 66 inches 5'6" Weight 225.00 lb Pain Level 7 BMI (Body Mass Index) 36.3 kg/m2 07/07/2014 Height 66 inches 5'6" Weight 228.00 lb Heart Rate 63 /min BP Systolic 120 mmHg BP Diastolic 88 mmHg Body Temperature 98.2 F BMI (Body Mass Index) 36.8 kg/m2 05/06/2014 Height 66 inches 5'6" Heart Rate 64 /min BP Systolic 125 mmHg BP Diastolic 89 mmHg 01/25/2014 Height 66 inches 5'6" Weight 210.00 lb Pain Level 4 BMI (Body Mass Index) 33.9 kg/m2 01/04/2014 Height 66 inches 5'6" Weight 210.00 lb Heart Rate 59 /min BP Systolic 128 mmHg BP Diastolic 82 mmHg BMI (Body Mass Index) 33.9 kg/m2 12/30/2013 Height 66 inches 5'6" Weight 209.00 lb Heart Rate 72 /min BP Systolic Sitting 122 mmHg BP Diastolic Sitting 80 mmHg BMI (Body Mass Index) 33.7 kg/m2 12/03/2013 Height 66 inches 5'6" Weight 210.00 lb Heart Rate 68 /min BMI (Body Mass Index) 33.9 kg/m2 11/17/2013 Weight 210.00 lb Heart Rate 64 /min BP Systolic Sitting 122 mmHg BP Diastolic Sitting 80 mmHg 11/13/2013 Height 66 inches 5'6" Weight 209.00 lb Heart Rate 76 /min BP Systolic Sitting 110 mmHg BP Diastolic Sitting 80 mmHg Body Temperature 98.4 F BMI (Body Mass Index) 33.7 kg/m2 11/04/2013 Height 66 inches 5'6" Weight 212.00 lb Heart Rate 68 /min BMI (Body Mass Index) 34.2 kg/m2 10/15/2013 Height 66 inches 5'6" Weight 212.00 lb Heart Rate 72 /min BP Systolic 128 mmHg BP Diastolic 78 mmHg BMI (Body Mass Index) 34.2 kg/m2 08/25/2013 Height 65.5 inches 5'5.50" Weight 216.00 lb Heart Rate 67 /min BP Systolic 147 mmHg BP Diastolic 84 mmHg BMI (Body Mass Index) 35.4 kg/m2 07/01/2013 Weight 233.50 lb Heart Rate 60 /min BP Systolic Sitting 124 mmHg BP Diastolic Sitting 80 mmHg 02/10/2013 Weight 237.75 lb Heart Rate 60 /min BP Systolic Sitting 130 mmHg BP Diastolic Sitting 80 mmHg Body Temperature 97.5 F 01/20/2013 Weight 233.00 lb Heart Rate 66 /min BP Systolic Sitting 122 mmHg BP Diastolic Sitting 80 mmHg Body Temperature 97.6 F 12/29/2012 Height 65 inches 5'5" Weight 234.00 lb Heart Rate 64 /min BP Systolic Sitting 126 mmHg BP Diastolic Sitting 76 mmHg BMI (Body Mass Index) 38.9 kg/m2 08/22/2012 Height 65 inches 5'5" Weight 235.00 lb Heart Rate 70 /min BP Systolic Sitting 130 mmHg BP Diastolic Sitting 82 mmHg BMI (Body Mass Index) 39.1 kg/m2 08/11/2012 Height 65 inches 5'5" Weight 235.00 lb Heart Rate 68 /min BP Systolic Sitting 132 mmHg BP Diastolic Sitting 86 mmHg BMI (Body Mass Index) 39.1 kg/m2 07/25/2012 Height 65 inches 5'5" Weight 237.25 lb Heart Rate 68 /min BP Systolic Sitting 138 mmHg BP Diastolic Sitting 80 mmHg Body Temperature 97.1 F BMI (Body Mass Index) 39.5 kg/m2 05/29/2012 Height 65 inches 5'5" Heart Rate 62 /min BP Systolic Sitting 138 mmHg BP Diastolic Sitting 86 mmHg Body Temperature 98.7 F 12/24/2011 Height 65 inches 5'5" Weight 240.00 lb Heart Rate 60 /min BP Systolic Sitting 116 mmHg BP Diastolic Sitting 72 mmHg BMI (Body Mass Index) 39.9 kg/m2 10/15/2011 Height 65 inches 5'5" Weight 235.00 lb Heart Rate 76 /min BP Systolic Sitting 138 mmHg BP Diastolic Sitting 82 mmHg BMI (Body Mass Index) 39.1 kg/m2 07/31/2011 Height 65 inches 5'5" Weight 239.00 lb Heart Rate 66 /min BP Systolic Sitting 120 mmHg BP Diastolic Sitting 64 mmHg BMI (Body Mass Index) 39.8 kg/m2 04/25/2011 Height 65 inches 5'5" Weight 236.00 lb Heart Rate 64 /min BP Systolic Sitting 118 mmHg BP Diastolic Sitting 66 mmHg BMI (Body Mass Index) 39.3 kg/m2 10/10/2010 Height 65 inches 5'5" Weight 235.00 lb Heart Rate 68 /min BP Systolic Sitting 120 mmHg BP Diastolic Sitting 78 mmHg BMI (Body Mass Index) 39.1 kg/m2 09/26/2010 Weight 238.25 lb Heart Rate 72 /min BP Systolic 120 mmHg BP Diastolic 78 mmHg Results Test Date Test Result H/L Range Note Laboratory test 01/04/2018 TSH (Thyroid Stim 1.06 mcIU/mL 0.34-5.60 1 finding Horm) Lipid Profile 01/04/2018 Triglycerides 85 mg/dL 2 (Trig/Chol/HDL) Cholesterol 244 mg/dL 3 HDL Cholesterol 46.6 mg/dL 4 LDL Cholesterol 180 mg/dL 5 Comp Metabolic Panel 01/04/2018 Sodium 141 mmol/L 135-145 Potassium 4.4 mmol/L 3.5-5.0 Chloride 105 mmol/L 101-111 Co2 Carbon Dioxide 27 mmol/L 22-32 Anion Gap 9 mmol/L 2-11 Glucose 105 mg/dL High 70-100 Blood Urea Nitrogen 15 mg/dL 6-24 Creatinine 0.70 mg/dL 0.51-0.95 BUN/Creatinine Ratio 21.4 High 8-20 Calcium 9.9 mg/dL 8.6-10.3 Total Protein 7.2 g/dL 6.4-8.9 Albumin 4.6 g/dL 3.2-5.2 Globulin 2.6 g/dL 2-4 Albumin/Globulin Ratio 1.8 1-3 Total Bilirubin 1.20 mg/dL High 0.2-1.0 Alkaline Phosphatase 68 U/L 34-104 Alt 14 U/L 7-52 Ast 14 U/L 13-39 Egfr Non- 85.4 >60 Egfr 103.3 >60 6 CBC Auto Diff 06/03/2017 White Blood Count 7.2 10^3/uL 3.5-10.8 Red Blood Count 5.37 10^6/uL 4.0-5.4 Hemoglobin 16.5 g/dL High 12.0-16.0 Hematocrit 49 % High 35-47 Mean Corpuscular Volume 91 fL 80-97 Mean Corpuscular Hemoglobin 31 pg 27-31 Mean Corpuscular HGB Conc 34 g/dL 31-36 Red Cell Distribution Width 14 % 10.5-15 Platelet Count 299 10^3/uL 150-450 Mean Platelet Volume 8 um3 7.4-10.4 Abs Neutrophils 4.4 10^3/uL 1.5-7.7 Abs Lymphocytes 2.2 10^3/uL 1.0-4.8 Abs Monocytes 0.5 10^3/uL 0-0.8 Abs Eosinophils 0.1 10^3/uL 0-0.6 Abs Basophils 0 10^3/uL 0-0.2 Abs Nucleated RBC 0.01 10^3/uL Granulocyte % 61.2 % 38-83 Lymphocyte % 30.9 % 25-47 Monocyte % 6.5 % 1-9 Eosinophil % 0.7 % 0-6 Basophil % 0.7 % 0-2 Nucleated Red Blood Cells % 0.1 Comp Metabolic Panel 06/03/2017 Sodium 138 mmol/L 133-145 Potassium 3.7 mmol/L 3.5-5.0 Chloride 104 mmol/L 101-111 Co2 Carbon Dioxide 25 mmol/L 22-32 Anion Gap 9 mmol/L 2-11 Glucose 93 mg/dL 70-100 Blood Urea Nitrogen 18 mg/dL 6-24 Creatinine 0.73 mg/dL 0.51-0.95 BUN/Creatinine Ratio 24.7 High 8-20 Calcium 9.4 mg/dL 8.6-10.3 Total Protein 7.4 g/dL 6.4-8.9 Albumin 4.3 g/dL 3.2-5.2 Globulin 3.1 g/dL 2-4 Albumin/Globulin Ratio 1.4 1-3 Total Bilirubin 1.50 mg/dL High 0.2-1.0 Alkaline Phosphatase 61 U/L 34-104 Alt 14 U/L 7-52 Ast 14 U/L 13-39 Egfr Non- 81.3 >60 Egfr 104.6 >60 7 Laboratory test finding 06/03/2017 Magnesium 2.5 mg/dL 1.9-2.7 Amylase 22 U/L Low 29-103 Lipase 10 U/L Low 11.0-82.0 C Reactive Protein 5.10 mg/L High < 5.00 8 Troponin-I (TnI) 0.00 ng/mL <0.04 Inr/Protime 06/03/2017 Inr 1.02 0.77-1.02 9 Laboratory test finding 06/03/2017 Lactic Acid 0.8 mmol/L 0.5-2.0 10 Lipid Profile (Trig/Chol/HDL) 01/10/2017 Triglycerides 71 mg/dL 11 Cholesterol 238 mg/dL 12 HDL Cholesterol 46.9 mg/dL 13 LDL Cholesterol 177 mg/dL 14 Laboratory test 01/10/2017 TSH (Thyroid Stim 0.89 mcIU/mL 0.34-5.60 finding Horm) Wound Culture/Sensi 09/21/2016 Wound/Misc SEE RESULT BELOW 15 Culture-Gram Stain Basic Metabolic Panel 05/24/2016 Sodium 140 mmol/L 133-145 Potassium 4.1 mmol/L 3.5-5.0 Chloride 106 mmol/L 101-111 Co2 Carbon Dioxide 28 mmol/L 22-32 Anion Gap 6 mmol/L 2-11 Glucose 91 mg/dL 70-100 Blood Urea Nitrogen 24 mg/dL 6-24 Creatinine 0.63 mg/dL 0.51-0.95 BUN/Creatinine Ratio 38.1 High 8-20 Calcium 9.8 mg/dL 8.6-10.3 Egfr Non- 96.7 >60 Egfr 124.4 >60 16 CBC Auto Diff 05/24/2016 White Blood Count 6.6 10^3/uL 3.5-10.8 Red Blood Count 4.71 10^6/uL 4.0-5.4 Hemoglobin 14.0 g/dL 12.0-16.0 Hematocrit 43 % 35-47 Mean Corpuscular Volume 90 fL 80-97 Mean Corpuscular Hemoglobin 30 pg 27-31 Mean Corpuscular HGB Conc 33 g/dL 31-36 Red Cell Distribution Width 14 % 10.5-15 Platelet Count 296 10^3/uL 150-450 Mean Platelet Volume 8 um3 7.4-10.4 Abs Neutrophils 3.7 10^3/uL 1.5-7.7 Abs Lymphocytes 2.2 10^3/uL 1.0-4.8 Abs Monocytes 0.6 10^3/uL 0-0.8 Abs Eosinophils 0.1 10^3/uL 0-0.6 Abs Basophils 0.1 10^3/uL 0-0.2 Abs Nucleated RBC 0.01 10^3/uL Granulocyte % 56.0 % 38-83 Lymphocyte % 33.4 % 25-47 Monocyte % 8.7 % 1-9 Eosinophil % 0.9 % 0-6 Basophil % 1.0 % 0-2 Nucleated Red Blood Cells % 0.1 Laboratory test finding 04/06/2016 TSH (Thyroid Stim 1.10 mcIU/mL 0.34- 5.60 17 Horm) Free T4 (Free Thyroxine) 0.87 ng/dL 0.61-1.12 18 Lipid Profile (Trig/Chol/HDL) 04/06/2016 Triglycerides 68 mg/dL 19 Cholesterol 228 mg/dL 20 HDL Cholesterol 47.4 mg/dL 21 LDL Cholesterol 167 mg/dL 22 Lipid Profile (Trig/Chol/HDL) 12/27/2015 Triglycerides 127 mg/dL 23, 24 Cholesterol 250 mg/dL 23, 25 HDL Cholesterol 44.7 mg/dL 23, 26 LDL Cholesterol 180 mg/dL 23, 27 Type & Screen 10/17/2015 Patient Blood Type O Positive 28 Antibody Screen NEGATIVE 28 CBC Auto Diff 10/05/2015 White Blood Count 6.2 10^3/uL 3.5-10.8 Red Blood Count 4.54 10^6/uL 4.0-5.4 Hemoglobin 13.5 g/dL 12.0-16.0 Hematocrit 41 % 35-47 Mean Corpuscular Volume 90 fL 80-97 Mean Corpuscular Hemoglobin 30 pg 27-31 Mean Corpuscular HGB Conc 33 g/dL 31-36 Red Cell Distribution Width 15 % 10.5-15 Platelet Count 284 10^3/uL 150-450 Mean Platelet Volume 9 um3 7.4-10.4 Abs Neutrophils 3.8 10^3/uL 1.5-7.7 Abs Lymphocytes 1.8 10^3/uL 1.0-4.8 Abs Monocytes 0.6 10^3/uL 0-0.8 Abs Eosinophils 0.1 10^3/uL 0-0.6 Abs Basophils 0 10^3/uL 0-0.2 Abs Nucleated RBC 0 10^3/uL Granulocyte % 60.9 % 38-83 Lymphocyte % 28.5 % 25-47 Monocyte % 9.1 % High 1-9 Eosinophil % 0.9 % 0-6 Basophil % 0.6 % 0-2 Nucleated Red Blood Cells % 0 Comp Metabolic Panel 10/05/2015 Sodium 139 mmol/L 133-145 Potassium 4.0 mmol/L 3.5-5.0 Chloride 107 mmol/L 101-111 Co2 Carbon Dioxide 24 mmol/L 22-32 Anion Gap 8 mmol/L 2-11 Glucose 89 mg/dL 70-100 Blood Urea Nitrogen 27 mg/dL High 6-24 Creatinine 0.76 mg/dL 0.51-0.95 BUN/Creatinine Ratio 35.5 High 8-20 Calcium 9.6 mg/dL 8.6-10.3 Total Protein 7.1 g/dL 6.4-8.9 Albumin 4.6 g/dL 3.2-5.2 Globulin 2.5 g/dL 2-4 Albumin/Globulin Ratio 1.8 1-3 Total Bilirubin 1.30 mg/dL High 0.2-1.0 Alkaline Phosphatase 60 U/L 34-104 Alt 18 U/L 7-52 Ast 20 U/L 13-39 Egfr Non- 78.2 >60 Egfr 100.5 >60 29 Urine Culture And 10/05/2015 Urine Culture SEE RESULT BELOW 30 Sensitivities Laboratory test finding 04/18/2015 Partial Thrombo 36.3 seconds 26.0- 36.3 Time PTT CBC No Diff 04/08/2015 White Blood Count 7.8 10^3/uL 4.8-10.8 Red Blood Count 5.16 10^6/uL 4.0-5.4 Hemoglobin 15.5 g/dL 12.0-16.0 Hematocrit 48 % High 35-47 Mean Corpuscular Volume 93 fL 80-97 Mean Corpuscular Hemoglobin 30 pg 27-31 Mean Corpuscular HGB Conc 32 g/dL 31-36 Red Cell Distribution Width 14 % 10.5-15 Platelet Count 450 10^3/uL 150-450 Mean Platelet Volume 8 um3 7.4-10.4 Inr/Protime 04/08/2015 Inr 0.97 0.78-1.07 Laboratory test finding 04/08/2015 Partial Thrombo Time 41.5 seconds High 26.0-36.3 PTT Urinalysis Profile 04/08/2015 Urine Color Yellow Urine Appearance Clear Urine Specific [place] 1.018 1.010-1.030 Urine pH 6.0 5-9 Urine Urobilinogen Negative Negative Urine Ketones Negative Negative Urine Protein Negative Negative Urine Leukocytes Negative Negative Urine Blood Negative Negative * * Negative 31 Urine Nitrite Negative Negative Urine Bilirubin Negative Negative Urine Glucose Negative Negative Comp Metabolic Panel 04/08/2015 Sodium 137 mmol/L 133-145 Potassium 4.3 mmol/L 3.5-5.0 Chloride 102 mmol/L 101-111 Co2 Carbon Dioxide 26 mmol/L 22-32 Anion Gap 9 mmol/L 2-11 Glucose 93 mg/dL 70-100 Blood Urea Nitrogen 14 mg/dL 6-24 Creatinine 0.70 mg/dL 0.51-0.95 BUN/Creatinine Ratio 20.0 8-20 Calcium 10.0 mg/dL 8.6-10.3 Total Protein 7.6 g/dL 6.4-8.9 Albumin 4.7 g/dL 3.2-5.2 Globulin 2.9 g/dL 2-4 Albumin/Globulin Ratio 1.6 1-3 Total Bilirubin 0.90 mg/dL 0.2-1.0 Alkaline Phosphatase 69 U/L 34-104 Alt 14 U/L 7-52 Ast 14 U/L 13-39 Egfr Non- 85.9 >60 Egfr 110.5 >60 32 Type & Screen 04/08/2015 Patient Blood Type O Positive Antibody Screen NEGATIVE Laboratory test finding 04/08/2015 Urine Culture And SEE RESULT BELOW 33 Sensitivities Type & Screen 03/18/2015 Patient Blood Type O Positive 34 Antibody Screen NEGATIVE 34 CBC Auto Diff 03/16/2015 White Blood Count 5.4 10^3/uL 4.8-10.8 Red Blood Count 5.05 10^6/uL 4.0-5.4 Hemoglobin 15.4 g/dL 12.0-16.0 Hematocrit 47 % 35-47 Mean Corpuscular Volume 93 fL 80-97 Mean Corpuscular Hemoglobin 31 pg 27-31 Mean Corpuscular HGB Conc 33 g/dL 31-36 Red Cell Distribution Width 14 % 10.5-15 Platelet Count 317 10^3/uL 150-450 Mean Platelet Volume 9 um3 7.4-10.4 Abs Neutrophils 3.0 10^3/uL 1.5-7.7 Abs Lymphocytes 1.8 10^3/uL 1.0-4.8 Abs Monocytes 0.4 10^3/uL 0-0.8 Abs Eosinophils 0.1 10^3/uL 0-0.6 Abs Basophils 0 10^3/uL 0-0.2 Abs Nucleated RBC 0.02 10^3/uL Granulocyte % 56.9 % 38-83 Lymphocyte % 33.0 % 25-47 Monocyte % 7.9 % 1-9 Eosinophil % 1.4 % 0-6 Basophil % 0.8 % 0-2 Nucleated Red Blood Cells % 0.4 Comp Metabolic Panel 03/16/2015 Sodium 138 mmol/L 133-145 Potassium 4.3 mmol/L 3.5-5.0 Chloride 105 mmol/L 101-111 Co2 Carbon Dioxide 26 mmol/L 22-32 Anion Gap 7 mmol/L 2-11 Glucose 107 mg/dL High 70-100 Blood Urea Nitrogen 21 mg/dL 6-24 Creatinine 0.68 mg/dL 0.51-0.95 BUN/Creatinine Ratio 30.9 High 8-20 Calcium 9.5 mg/dL 8.6-10.3 Total Protein 7.1 g/dL 6.4-8.9 Albumin 4.5 g/dL 3.2-5.2 Globulin 2.6 g/dL 2-4 Albumin/Globulin Ratio 1.7 1-3 Total Bilirubin 1.20 mg/dL High 0.2-1.0 Alkaline Phosphatase 65 U/L 34-104 Alt 15 U/L 7-52 Ast 12 U/L Low 13-39 Egfr Non- 89.2 >60 Egfr 114.7 >60 35 Urinalysis Profile 03/16/2015 Urine Color Yellow Urine Appearance Clear Urine Specific [place] 1.021 1.010-1.030 Urine pH 6.0 5-9 Urine Urobilinogen Negative Negative Urine Ketones Negative Negative Urine Protein Negative Negative Urine Leukocytes Trace Negative Urine Blood Negative Negative * * Negative 36 Urine Nitrite Negative Negative Urine Bilirubin Negative Negative Urine Glucose Negative Negative Urine White Blood Cell 1+(6-10/hpf) Absent Urine Red Blood Cell 1+(3-5/hpf) Absent Urine Bacteria Absent Absent Urine Squamous Epithelial Cell Present Absent Laboratory test 03/16/2015 Urine Culture And SEE RESULT BELOW 37 finding Sensitivities Comp Metabolic Panel 12/27/2014 Sodium 140 mmol/L 133-145 38 Potassium 4.3 mmol/L 3.5-5.0 38 Chloride 107 mmol/L 101-111 38 Co2 Carbon Dioxide 26 mmol/L 22-32 38 Anion Gap 7 mmol/L 2-11 38 Glucose 102 mg/dL High 70-100 38 Blood Urea Nitrogen 25 mg/dL High 6-24 38 Creatinine 0.75 mg/dL 0.51-0.95 38 BUN/Creatinine Ratio 33.3 High 8-20 38 Calcium 9.7 mg/dL 8.6-10.3 38 Total Protein 6.8 g/dL 6.4-8.9 38 Albumin 4.4 g/dL 3.2-5.2 38 Globulin 2.4 g/dL 2-4 38 Albumin/Globulin Ratio 1.8 1-3 38 Total Bilirubin 1.00 mg/dL 0.2-1.0 38 Alkaline Phosphatase 60 U/L 34-104 38 Alt 17 U/L 7-52 38 Ast 14 U/L 13-39 38 Egfr Non- 79.6 >60 38 Egfr 102.4 >60 38, 39 Lipid Profile (Trig/Chol/HDL) 12/27/2014 Triglycerides 99 mg/dL 38, 40 Cholesterol 232 mg/dL 38, 41 HDL Cholesterol 48.2 mg/dL 38, 42 LDL Cholesterol 164 mg/dL 38, 43 Laboratory test finding 11/02/2014 Vitamin D Total 25(Oh) 37.7 ng/mL 30- 50 Erythrocyte Sed Rate 19 mm/Hr 0-30 C Reactive Protein 3.53 mg/L < 5.00 44 Laboratory test finding 09/29/2014 TSH (Thyroid Stimulating 1.27 IU/mL 0.34-5.60 Horm) Follicle Stimulating Hormone 66.6 IU/mL 45 Creatine Kinase 122 U/L 10-223 Laboratory test 12/30/2013 TSH (Thyroid 0.94 IU/mL 0.34-5.60 38, 46 finding Stimulating Horm) Lipid Profile 12/30/2013 Triglycerides 58 mg/dL 38, 47 (Trig/Chol/HDL) Cholesterol 183 mg/dL 38, 48 HDL Cholesterol 53.7 mg/dL 38, 49 LDL Cholesterol 118 mg/dL 38, 50 Comp Metabolic Panel 12/30/2013 Sodium 141 mmol/L 133-145 38 Potassium 4.3 mmol/L 3.7-5.6 38 Chloride 104 mmol/L 101-111 38 Co2 Carbon Dioxide 28 mmol/L 22-32 38 Anion Gap 9 mmol/L 2-11 38 Glucose 79 mg/dL 70-100 38 Blood Urea Nitrogen 20 mg/dL 6-24 38 Creatinine 0.77 mg/dL 0.51-0.95 38 BUN/Creatinine Ratio 26.0 High 8-20 38 Calcium 9.6 mg/dL 8.6-10.3 38 Total Protein 7.1 g/dL 6.4-8.9 38 Albumin 4.6 g/dL 3.2-5.2 38 Globulin 2.5 g/dL 2-4 38 Albumin/Globulin Ratio 1.8 1-3 38 Total Bilirubin 1.50 mg/dL High 0.2-1.0 38 Alkaline Phosphatase 63 U/L 34-104 38 Alt 14 U/L 7-52 38 Ast 15 U/L 13-39 38 Egfr Non- 77.5 >60 38 Egfr 99.7 >60 38, 51 CBC Auto Diff 11/17/2013 White Blood Count 5.8 10^3/uL 4.8-10.8 Red Blood Count 4.34 10^6/uL 4.0-5.4 Hemoglobin 13.4 g/dL 12.0-16.0 Hematocrit 40 % 35-47 Mean Corpuscular Volume 92 fL 80-97 Mean Corpuscular Hemoglobin 31 pg 27-31 Mean Corpuscular HGB Conc 34 g/dL 31-36 Red Cell Distribution Width 13 % 10.5-15 Platelet Count 270 10^3/uL 150-450 Mean Platelet Volume 9 um3 7.4-10.4 Abs Neutrophils 3.1 10^3/uL 1.5-7.7 Abs Lymphocytes 2.2 10^3/uL 1.0-4.8 Abs Monocytes 0.4 10^3/uL 0-0.8 Abs Eosinophils 0.1 10^3/uL 0-0.6 Abs Basophils 0 10^3/uL 0-0.2 Abs Nucleated RBC 0.01 10^3/uL Granulocyte % 53.2 % 38-83 Lymphocyte % 36.9 % 25-47 Monocyte % 7.2 % 1-9 Eosinophil % 1.9 % 0-6 Basophil % 0.8 % 0-2 Nucleated Red Blood Cells % 0.1 Comp Metabolic Panel 11/17/2013 Sodium 139 mmol/L 133-145 Potassium 3.9 mmol/L 3.7-5.6 Chloride 106 mmol/L 101-111 Co2 Carbon Dioxide 26 mmol/L 22-32 Anion Gap 7 mmol/L 2-11 Glucose 77 mg/dL 70-100 Blood Urea Nitrogen 20 mg/dL 6-24 Creatinine 0.59 mg/dL 0.51-0.95 BUN/Creatinine Ratio 33.9 High 8-20 Calcium 9.5 mg/dL 8.6-10.3 Total Protein 7.0 g/dL 6.4-8.9 Albumin 4.5 g/dL 3.2-5.2 Globulin 2.5 g/dL 2-4 Albumin/Globulin Ratio 1.8 1-3 Total Bilirubin 1.20 mg/dL High 0.2-1.0 Alkaline Phosphatase 51 U/L 34-104 Alt 32 U/L 7-52 Ast 16 U/L 13-39 Egfr Non- 105.4 >60 Egfr 135.6 >60 52 Laboratory test 11/17/2013 Activated Partial 37.5 seconds High 24.0-36.1 finding Thrombo Time Inr/Protime 11/17/2013 Inr 0.91 0.85-1.06 Laboratory test 07/01/2013 TSH (Thyroid 0.93 miu/mL 0.34-5.60 finding Stimulating Horm) Comp Metabolic Panel 12/31/2012 Sodium 140 mmol/L 133-145 Potassium 4.3 mmol/L 3.5-5.0 Chloride 109 mmol/L 101-111 Co2 Carbon Dioxide 26.0 mmol/L 22-32 Anion Gap 5.0 mmol/L 2-11 Glucose 101 mg/dL High 70-100 Blood Urea Nitrogen 12 mg/dL 6-24 Creatinine 0.70 mg/dL 0.50-1.40 BUN/Creatinine Ratio 17.1 8-20 Calcium 9.6 mg/dL 8.1-9.9 Total Protein 6.5 g/dL 6.2-8.1 Albumin 4.1 g/dL 3.6-5.4 Globulin 2.4 g/dL 2-4 Albumin/Globulin Ratio 1.7 1-3 Total Bilirubin 1.3 mg/dL 0.4-1.5 Alkaline Phosphatase 63 U/L 30-110 Alt 17 U/L 14-54 Ast 18 U/L 12-42 Egfr Non- 86.9 >60 Egfr 111.7 >60 53 Lipid Profile (Trig/Chol/HDL) 12/31/2012 Triglycerides 65 mg/dL 40-200 Cholesterol 166 mg/dL Less than 200 HDL Cholesterol 46 mg/dL 40-60 54 Cholesterol/HDL Ratio 3.6 Average 1-4.44 LDL Cholesterol 107.0 High Less Than 100 55 Laboratory test finding 12/31/2012 Free T4 1.02 ng/mL 0.61-1.24 56 TSH (Thyroid Stimulating Horm) 1.09 miu/mL 0.34-5.60 57 Vitamin D 1,25 And Vitamin 09/13/2012 Vitamin D 1,25-Dihydroxy 42 pg/mL 18-78 58 D,2 Vitamin D, 25 Hydroxy 09/13/2012 25-Hydroxy Vitamin D2 28 ng/mL 25-Hydroxy Vitamin D3 12 ng/mL 25-Hydroxy Vitamin D Total 40 ng/mL 59 Laboratory test finding 07/25/2012 Follicle Stimulating Hormone 55.57 MIU/ ML 60 TSH (Thyroid Stimulating Horm) 1.11 miu/mL 0.34-5.60 Laboratory test finding 05/29/2012 Creatine Kinase 114 U/L 0-200 C Reactive Protein < 0.5 mg/dL Less than 0.5 Erythrocyte Sed Rate 24 mm/Hr 0-30 Vitamin D 1,25 And Vitamin 05/29/2012 Vitamin D 1,25-Dihydroxy 46 pg/mL 18-78 61 D,2 Vitamin D, 25 Hydroxy 05/29/2012 25-Hydroxy Vitamin D2 <4.0 ng/mL 25-Hydroxy Vitamin D3 31 ng/mL 25-Hydroxy Vitamin D Total 31 ng/mL 62 Laboratory test finding 05/29/2012 Lyme Disease Serology Negative Negative 63 Comp Metabolic Panel 05/29/2012 Sodium 141 mmol/L 133-145 Potassium 4.1 mmol/L 3.5-5.0 Chloride 107 mmol/L 101-111 Co2 Carbon Dioxide 27.0 mmol/L 22-32 Anion Gap 7.0 mmol/L 2-11 Glucose 87 mg/dL 70-100 Blood Urea Nitrogen 17 mg/dL 6-24 Creatinine 0.60 mg/dL 0.50-1.40 BUN/Creatinine Ratio 28.3 High 8-20 Calcium 10.0 mg/dL High 8.1-9.9 Total Protein 7.1 g/dL 6.2-8.1 Albumin 4.5 g/dL 3.6-5.4 Globulin 2.6 g/dL 2-4 Albumin/Globulin Ratio 1.7 1-3 Total Bilirubin 1.4 mg/dL 0.4-1.5 Alkaline Phosphatase 63 U/L 30-110 Alt 18 U/L 14-54 Ast 19 U/L 12-42 Egfr Non- 103.8 >60 Egfr 133.5 >60 64 CBC With Manual Diff 05/29/2012 White Blood Count 6.0 10^3/uL 4.8-10.8 Red Blood Count 4.67 10^6/uL 4.0-5.4 Hemoglobin 14.4 g/dL 12.0-16.0 Hematocrit 43 % 35-47 Mean Corpuscular Volume 93 fL 80-97 Mean Corpuscular Hemoglobin 31 pg 27-31 Mean Corpuscular HGB Conc 33 g/dL 31-36 Red Cell Distribution Width 13 % 10.5-15 Platelet Count 273 10^3/uL 150-450 Mean Platelet Volume 9 um3 7.4-10.4 Abs Neutrophils 3.4 10^3/uL 1.5-7.7 Abs Lymphocytes 2.0 10^3/uL 1.0-4.8 Abs Monocytes 0.5 10^3/uL 0-0.8 Abs Eosinophils 0.1 10^3/uL 0-0.6 Abs Basophils 0 10^3/uL 0-0.2 Abs Nucleated RBC 0 10^3/uL Neutrophil % 53.0 % 38-83 Band % 3.0 % 0-8 Lymphocytes % 31.0 % 25-47 Monocytes % 6.0 % 0-13 Eosinophils % 1.0 % 0-6 Basophil % 0 % 0-2 Reactive Lymph % 6.0 % 0-6 Metamyelocytes % 0 % 0-2 Myelocytes % 0 % 0-1 Promyelocytes % 0 % Blast % 0 % RBC Morphology Normal Normal Laboratory test finding 10/15/2011 TSH 1.39 MIU/ML 0.34-5.60 Thyroxine Free 0.91 ng/dL 0.61-1.24 Lipid Profile (Trig/Chol/HDL) 10/15/2011 Triglyceride 98 mg/dL 40-200 Cholesterol 161 mg/dL Less Than 200 65 High Density Lipoprotein 45 mg/dL 40-60 66 Cholesterol/HDL Ratio 3.58 AVERAGE 1-4.44 Low Density Lipoprotein 96 mg/dL Less Than 100 67 Comp Metabolic Panel 10/15/2011 Sodium 140 mmol/L 135-145 Potassium 3.8 mmol/L 3.5-5.0 Chloride 108 mmol/L 101-111 Co2 (Carbon Dioxide) 25.0 mmol/L 22-32 Anion Gap 7.0 mmol/L 2-11 68 Glucose 86 mg/dL 70-100 BUN 18 mg/dL 6-24 Creatinine 0.6 mg/dL 0.50-1.40 One Over Creatinine 1.66 BUN/Creatinine Ratio 30.0 High 8-20 Calcium 9.3 mg/dL 8.1-9.9 Total Protein 6.9 GM/DL 6.2-8.1 Albumin 4.3 GM/DL 3.6-5.4 Globulin 2.6 GM/DL 2-4 Albumin/Globulin Ratio 1.7 1-3 Bilirubin Total 1.6 mg/dL High 0.4-1.5 69 Alkaline Phosphatase 58 U/L 30-110 Alt (SGPT) 22 U/L 14-54 Ast (Sgot) 22 U/L 12-42 eGFR Non- 104.2 > 60 eGFR 134.0 > 60 70 CBC No Diff 04/17/2011 White Blood Count 5.3 CUMM 4.8-10.8 Red Cell Count 4.46 CUMM 4.2-5.4 Hemoglobin 14.1 g/dL 12.0-16.0 Hematocrit 41 % 35-47 Mean Corpuscular Volume 92 um3 79-97 Mean Corpuscular Hemoglob 32 pg High 27-31 Mean Corpuscular HGB Cone 34 g/dL 32-36 Redcell Distribution WDTH 13 % 10.5-15 Platelet Count 277 CUMM 150-450 Mean Platelet Volume 8.5 um3 7.4-10.4 Comp Metabolic Panel 04/17/2011 Sodium 140 mmol/L 135-145 Potassium 3.8 mmol/L 3.5-5.0 Chloride 108 mmol/L 101-111 Co2 (Carbon Dioxide) 24.0 mmol/L 22-32 Anion Gap 8.0 mmol/L 2-11 71 Glucose 94 mg/dL 70-100 BUN 13 mg/dL 6-24 Creatinine 0.6 mg/dL 0.50-1.40 One Over Creatinine 1.66 BUN/Creatinine Ratio 21.7 High 8-20 Calcium 9.2 mg/dL 8.1-9.9 Total Protein 6.5 GM/DL 6.2-8.1 Albumin 3.9 GM/DL 3.6-5.4 Globulin 2.6 GM/DL 2-4 Albumin/Globulin Ratio 1.5 1-3 Bilirubin Total 1.7 mg/dL High 0.4-1.5 72 Alkaline Phosphatase 50 U/L 30-110 Alt (SGPT) 22 U/L 14-54 Ast (Sgot) 16 U/L 12-42 eGFR Non- 104.2 > 60 eGFR 134.0 > 60 73 Laboratory test finding 04/17/2011 Troponin-I 0 NG/ML 0-0.06 74 Protime 04/17/2011 Inr 0.93 0.88-1.13 75 Protime 11.0 SEC 10.3-13.5 76 Laboratory test finding 04/17/2011 PTT (Aptt) 31.2 25.15-38.53 TSH 1.07 MIU/ML 0.34-5.60 Urinalysis 04/17/2011 Ua Color YELLOW Yellow Appearance-Urine CLEAR Clear Specific [place]-Ur 1.005 Low 1.010-1.030 Esterase-Urine NEGATIVE Negative Nitrite NEGATIVE Negative [id number] NEGATIVE Negative Protein-Urine NEGATIVE Negative PH-Urine 7.0 5-9 Blood-Urine NEGATIVE Negative Ketones-Urine NEGATIVE Negative Bilirubin-Ur NEGATIVE Negative Glucose-Urine NEGATIVE Negative 1 FASTING 10 HOUR 2 Desirable: <150 Borderline High: 150-199 High: 200-499 Very High: >500 3 Desirable: <200 Borderline High: 200-239 High: >239 4 Low: <40 Desirable: 40-60 High: >60 5 Desirable: <100 Near Optimal: 100-129 Borderline High: 130-159 High: 160-189 Very High: >189 6 Because ethnic data is not always readily available, this report includes an eGFR for both -Americans and non- Americans. The National Kidney Disease Education Program (NKDEP) does not endorse the use of the MDRD equation for patients that are not between the ages of 18 and 70, are , have extremes of body size, muscle mass, or nutritional status, or are non- or non-. According to the National Kidney Foundation, irrespective of diagnosis, the stage of the disease is based on the level of kidney function: Stage Description GFR(mL/min/1.73 m(2)) 1 Kidney damage with normal or decreased GFR 90 2 Kidney damage with mild decrease in GFR 60-89 3 Moderate decrease in GFR 30-59 4 Severe decrease in GFR 15-29 5 Kidney failure <15 (or dialysis) 7 Because ethnic data is not always readily available, this report includes an eGFR for both -Americans and non- Americans. The National Kidney Disease Education Program (NKDEP) does not endorse the use of the MDRD equation for patients that are not between the ages of 18 and 70, are , have extremes of body size, muscle mass, or nutritional status, or are non- or non-. According to the National Kidney Foundation, irrespective of diagnosis, the stage of the disease is based on the level of kidney function: Stage Description GFR(mL/min/1.73 m(2)) 1 Kidney damage with normal or decreased GFR 90 2 Kidney damage with mild decrease in GFR 60-89 3 Moderate decrease in GFR 30-59 4 Severe decrease in GFR 15-29 5 Kidney failure <15 (or dialysis) 8 Acute inflammation: >10.00 9 Please note the change in INR reference range effective 17. 10 [facility] Severe Sepsis and Septic Shock Management Bundle Measure requires all lactic acids initially measuring >2.0 mmol/L be repeated. 11 Desirable <150 Borderline high 150-199 High 200-499 Very High >500 12 Desirable <200 Borderline high 200-239 High >239 13 Low <40 Desirable: 40-60 High: >60 14 Desirable: <100 mg/dL Near Optimal: 100-129 mg/dL Borderline High: 130-159 mg/dL High: 160-189 mg/dL Very High: >189 mg/dL 15 SEE RESULT BELOW Name: KATIEGILDA Patrick : [address]: Loco Noble [employer] Acct: [id number] Unit: [id number] AGE: 61 Location: [facility] Re09/21/16 SEX: F Status: REG REF SPEC: [id number] DEAN: 09/21/16-[address] [facility] [address]: Loco Noble NP REQ: [id number] RECD: 09/21/16 STATUS: COMP _ SOURCE: WOUND SPDESC: ORDERED: Culture Stain COMMENTS: [id number] Specimen Description Open area on breast Procedure Result Reported Site Wound/Misc Gram Stain Final 09/22/16- 902 ML 3+ Epithelial Cells 1+ Neutrophils No Organisms Seen Wound/Misc Culture Final 09/23/16- 1034 ML No Growth Day 2 * ML - MAIN LAB ([facility]) . END OF REPORT * ML=Testing performed at Main Lab DEPARTMENT OF PATHOLOGY, [address] [place] [address] Carlos Enrique Melgoza M.D. Director [facility] # [id number] 16 Because ethnic data is not always readily available, this report includes an eGFR for both -Americans and non- Americans. The National Kidney Disease Education Program (NKDEP) does not endorse the use of the MDRD equation for patients that are not between the ages of 18 and 70, are , have extremes of body size, muscle mass, or nutritional status, or are non- or non-. According to the National Kidney Foundation, irrespective of diagnosis, the stage of the disease is based on the level of kidney function: Stage Description GFR(mL/min/1.73 m(2)) 1 Kidney damage with normal or decreased GFR 90 2 Kidney damage with mild decrease in GFR 60-89 3 Moderate decrease in GFR 30-59 4 Severe decrease in GFR 15-29 5 Kidney failure <15 (or dialysis) 17 FASTING 10 HOUR Please get this done in April 10 FASTING 10 HOUR Please get this done in April 11 Desirable <150 Borderline high 150-199 High 200-499 Very High >500 20 Desirable <200 Borderline high 200-239 High >239 21 Low <40 Desirable: 40-60 High: >60 22 Desirable: <100 mg/dL Near Optimal: 100-129 mg/dL Borderline High: 130-159 mg/dL High: 160-189 mg/dL Very High: >189 mg/dL 23 [facility] [id number] 24 Desirable <150 Borderline high 150-199 High 200-499 Very High >500 25 Desirable <200 Borderline high 200-239 High >239 26 Low <40 Desirable: 40-60 High: >60 27 Desirable: <100 mg/dL Near Optimal: 100-129 mg/dL Borderline High: 130-159 mg/dL High: 160-189 mg/dL Very High: >189 mg/dL 28 UNILATERAL PRIMARY OSTEOARTHRITIS, LEFT KNEE 29 Because ethnic data is not always readily available, this report includes an eGFR for both -Americans and non- Americans. The National Kidney Disease Education Program (NKDEP) does not endorse the use of the MDRD equation for patients that are not between the ages of 18 and 70, are , have extremes of body size, muscle mass, or nutritional status, or are non- or non-. According to the National Kidney Foundation, irrespective of diagnosis, the stage of the disease is based on the level of kidney function: Stage Description GFR(mL/min/1.73 m(2)) 1 Kidney damage with normal or decreased GFR 90 2 Kidney damage with mild decrease in GFR 60-89 3 Moderate decrease in GFR 30-59 4 Severe decrease in GFR 15-29 5 Kidney failure <15 (or dialysis) 30 SEE RESULT BELOW Name: GILDA WILSON : [address]: Loco Noble NP Acct: [id number] Unit: [id number] AGE: 60 Location: [facility] Re10/05/15 SEX: F Status: REG REF SPEC: [id number] DEAN: 10/05/[address]: Loco Noble NP REQ: [id number] RECD: 10/05/15 STATUS: COMP _ SOURCE: URINE SPDESC: ORDERED: Urine Culture Procedure Result Reported Site Urine Culture Final 10/07/15- 0850 ML No growth of clinically significant organisms * ML - MAIN LAB ([facility]) . END OF REPORT * ML=Testing performed at Main Lab DEPARTMENT OF PATHOLOGY, [address] [place] [address] Carlos Enrique Melgoza M.D. Director [facility] # [id number] 31 *Ascorbic acid is present which may interfere with detection of blood. 32 Because ethnic data is not always readily available, this report includes an eGFR for both -Americans and non- Americans. The National Kidney Disease Education Program (NKDEP) does not endorse the use of the MDRD equation for patients that are not between the ages of 18 and 70, are , have extremes of body size, muscle mass, or nutritional status, or are non- or non-. According to the National Kidney Foundation, irrespective of diagnosis, the stage of the disease is based on the level of kidney function: Stage Description GFR(mL/min/1.73 m(2)) 1 Kidney damage with normal or decreased GFR 90 2 Kidney damage with mild decrease in GFR 60-89 3 Moderate decrease in GFR 30-59 4 Severe decrease in GFR 15-29 5 Kidney failure <15 (or dialysis) 33 SEE RESULT BELOW Name: GILDA WILSON : [address]: Eli Herrera MD Acct: [id number] Unit: [id number] AGE: 60 Location: [facility] Re04/08/15 SEX: F Status: REG REF SPEC: [id number] DEAN: 04/08/[address] [facility] [address]: Eli Herrera MD REQ: [id number] RECD: 04/08/15 STATUS: MARTHA PURI DR: Maureen Patel [employer] _ SOURCE: URINE SPDESC: ORDERED: Urine Culture QUERIES: Urine Source: Clean Catch Procedure Result Verified Site Urine Culture Final 04/10/15- 1034 ML Organism 1 NORMAL BRY [place] Count 25-50,000 (Moderate) CFU/ML * ML - MAIN LAB (PSC1) . END OF REPORT * ML=Testing performed at Main Lab DEPARTMENT OF PATHOLOGY, [address] [place] [address] Carlos Enrique Melgoza M.D. Director [facility] # [id number] OSTEOARTHROSIS RIGHT LOWER LEG, EFFUSION JOINT RIG 35 Because ethnic data is not always readily available, this report includes an eGFR for both -Americans and non- Americans. The National Kidney Disease Education Program (NKDEP) does not endorse the use of the MDRD equation for patients that are not between the ages of 18 and 70, are , have extremes of body size, muscle mass, or nutritional status, or are non- or non-. According to the National Kidney Foundation, irrespective of diagnosis, the stage of the disease is based on the level of kidney function: Stage Description GFR(mL/min/1.73 m(2)) 1 Kidney damage with normal or decreased GFR 90 2 Kidney damage with mild decrease in GFR 60-89 3 Moderate decrease in GFR 30-59 4 Severe decrease in GFR 15-29 5 Kidney failure <15 (or dialysis) 36 *Ascorbic acid is present which may interfere with detection of blood. 37 SEE RESULT BELOW Name: GILDA WILSON : [address]: Maureen Patel NP Acct: [id number] Unit: [id number] AGE: 59 Location: [facility] Re03/16/15 SEX: F Status: REG REF SPEC: [id number] DEAN: 03/16/[address]: Maureen Patel NP REQ: [id number] RECD: 03/16/15 STATUS: COMP _ SOURCE: URINE SPDESC: ORDERED: Urine Culture Procedure Result Verified Site Urine Culture Final 03/18/15- 934 ML Organism 1 NORMAL BRY [place] Count 1-10,000 (Few) CFU/ML * ML - MAIN LAB ([facility]) . END OF REPORT * ML=Testing performed at Main Lab DEPARTMENT OF PATHOLOGY, [address] [place] [address] Carlos Enrique Melgoza M.D. Director [facility] # [id number] 38 PT IS FASTING 39 Because ethnic data is not always readily available, this report includes an eGFR for both -Americans and non- Americans. The National Kidney Disease Education Program (NKDEP) does not endorse the use of the MDRD equation for patients that are not between the ages of 18 and 70, are , have extremes of body size, muscle mass, or nutritional status, or are non- or non-. According to the National Kidney Foundation, irrespective of diagnosis, the stage of the disease is based on the level of kidney function: Stage Description GFR(mL/min/1.73 m(2)) 1 Kidney damage with normal or decreased GFR 90 2 Kidney damage with mild decrease in GFR 60-89 3 Moderate decrease in GFR 30-59 4 Severe decrease in GFR 15-29 5 Kidney failure <15 (or dialysis) 40 Desirable <150 Borderline high 150-199 High 200-499 Very High >500 41 Desirable <200 Borderline high 200-239 High >239 42 Low <40 Desirable: 40-60 High: >60 43 Desirable: <100 mg/dL Near Optimal: 100-129 mg/dL Borderline High: 130-159 mg/dL High: 160-189 mg/dL Very High: >189 mg/dL 44 Acute inflammation: >10.00 45 Normally menstruating females - Follicular phase 3 - 9 - Mid-cycle peak 4 - 23 - Luteal phase 1 - 6 Postmenopausal females 16 - 114 46 PT IS FASTING 47 Desirable <150 Borderline high 150-199 High 200-499 Very High >500 48 Desirable <200 Borderline high 200-239 High >239 49 Low <40 Desirable: 40-60 High: >60 50 Desirable <100 Near Optimal 100-129 Borderline high 130-159 High 160-189 Very High >189 51 Because ethnic data is not always readily available, this report includes an eGFR for both -Americans and non- Americans. The National Kidney Disease Education Program (NKDEP) does not endorse the use of the MDRD equation for patients that are not between the ages of 18 and 70, are , have extremes of body size, muscle mass, or nutritional status, or are non- or non-. According to the National Kidney Foundation, irrespective of diagnosis, the stage of the disease is based on the level of kidney function: Stage Description GFR(mL/min/1.73 m(2)) 1 Kidney damage with normal or decreased GFR 90 2 Kidney damage with mild decrease in GFR 60-89 3 Moderate decrease in GFR 30-59 4 Severe decrease in GFR 15-29 5 Kidney failure <15 (or dialysis) 52 Because ethnic data is not always readily available, this report includes an eGFR for both -Americans and non- Americans. The National Kidney Disease Education Program (NKDEP) does not endorse the use of the MDRD equation for patients that are not between the ages of 18 and 70, are , have extremes of body size, muscle mass, or nutritional status, or are non- or non-. According to the National Kidney Foundation, irrespective of diagnosis, the stage of the disease is based on the level of kidney function: Stage Description GFR(mL/min/1.73 m(2)) 1 Kidney damage with normal or decreased GFR 90 2 Kidney damage with mild decrease in GFR 60-89 3 Moderate decrease in GFR 30-59 4 Severe decrease in GFR 15-29 5 Kidney failure <15 (or dialysis) 53 Because ethnic data is not always readily available, this report includes an eGFR for both -Americans and non- Americans. The National Kidney Disease Education Program (NKDEP) does not endorse the use of the MDRD equation for patients that are not between the ages of 18 and 70, are , have extremes of body size, muscle mass, or nutritional status, or are non- or non-. According to the National Kidney Foundation, irrespective of diagnosis, the stage of the disease is based on the level of kidney function: Stage Description GFR(mL/min/1.73 m(2)) 1 Kidney damage with normal or decreased GFR 90 2 Kidney damage with mild decrease in GFR 60-89 3 Moderate decrease in GFR 30-59 4 Severe decrease in GFR 15-29 5 Kidney failure <15 (or dialysis) 54 HDL Interpretation: Undesirable: High Risk: Less than 40 mg/dL Desirable: Low Risk: Greater than 60 mg/dL 55 LDL Interpretation: Low Risk Optimal Level: LDL Less than 100 mg/dL Near or Above Optimal: LDL 100-129 mg/dL Borderline High Risk: LDL 130-159 mg/dL High Risk: LDL 160-189 mg/dL Very High Risk: LDL Greater than 189 mg/dL 56 PT IS FASTING 57 PT IS FASTING 58 Test Performed by: [place] [address] Pcb Design Engineer: Hussein Lucero III, M.D. 59 -- REFERENCE VALUE -- 25-HYDROXY D TOTAL (D2+D3) Optimum levels in the normal population are 25-80 Test Performed by: [place] [address] Pcb Design Engineer: Hussein Lucero III, M.D. 60 Normally menstruating females - Follicular phase 3 - 9 - Mid-cycle peak 4 - 23 - Luteal phase 1 - 6 Postmenopausal females 16 - 114 61 Test Performed by: [place] [address] Pcb Design Engineer: Hussein Lucero III, M.D. 62 -- REFERENCE VALUE -- 25-HYDROXY D TOTAL (D2+D3) Optimum levels in the normal population are 25-80 Test Performed by: [place] [address] Pcb Design Engineer: Hussein Lucero III, M.D. 63 Serologic response to B. burgdorferi infection is not detected, but cannot rule out early infection during which low or undetectable antibody levels to B. burgdorferi may be present. If clinically indicated, a new serum specimen should be submitted in 7-14 days. Test Performed by: [place] [address] Pcb Design Engineer: Hussein Lucero III, M.D. 64 Because ethnic data is not always readily available, this report includes an eGFR for both -Americans and non- Americans. The National Kidney Disease Education Program (NKDEP) does not endorse the use of the MDRD equation for patients that are not between the ages of 18 and 70, are , have extremes of body size, muscle mass, or nutritional status, or are non- or non-. According to the National Kidney Foundation, irrespective of diagnosis, the stage of the disease is based on the level of kidney function: Stage Description GFR(mL/min/1.73 m(2)) 1 Kidney damage with normal or decreased GFR 90 2 Kidney damage with mild decrease in GFR 60-89 3 Moderate decrease in GFR 30-59 4 Severe decrease in GFR 15-29 5 Kidney failure <15 (or dialysis) 65 CHOLESTEROL INTERPRETATION: Desirable: Less than 200 MG/DL Borderline-High Risk: 200-239 MG/DL High-Risk: 240 MG/DL and over 66 HDL INTERPRETATION: Undesirable: High Risk: Less than 40 MG/DL Desirable: Low Risk: Greater than 60 MG/DL 67 LDL INTERPRETATION: Low Risk Optimal Level: LDL Less than 100 MG/DL Near or Above Optimal: LDL 100-129 MG/DL Borderline High Risk: LDL 130-159 MG/DL High Risk: LDL 160-189 MG/DL Very High Risk: LDL Greater than 189 MG/DL 68 Anion gap measurement may be of limited value in the presence of any alkalosis, especially in a combined acid base disorder. . 69 A metabolite of Naproxen, O-desmethylnaproxen, has been shown to interfere with the Jendrassik-Pinecroft method for measuring total bilirubin. Samples from patients who have taken Naproxen have shown spurious elevation in total bilirubin levels. 70 Because ethnic data is not always readily available, this report includes an eGFR for both -Americans and non- Americans. The National Kidney Disease Education Program (NKDEP) does not endorse the use of the MDRD equation for patients that are not between the ages of 18 and 70, are , have extremes of body size, muscle mass, or nutritional status, or are non- or non-. According to the National Kidney Foundation, irrespective of diagnosis, the stage of the disease is based on the level of kidney function: Stage Description GFR(mL/min/1.73 m(2)) 1 Kidney damage with normal or decreased GFR 90 2 Kidney damage with mild decrease in GFR 60-89 3 Moderate decrease in GFR 30-59 4 Severe decrease in GFR 15-29 5 Kidney failure <15 (or dialysis) 71 Anion gap measurement may be of limited value in the presence of any alkalosis, especially in a combined acid base disorder. . 72 A metabolite of Naproxen, O-desmethylnaproxen, has been shown to interfere with the Jendrassik-Javed method for measuring total bilirubin. Samples from patients who have taken Naproxen have shown spurious elevation in total bilirubin levels. 73 Because ethnic data is not always readily available, this report includes an eGFR for both -Americans and non- Americans. The National Kidney Disease Education Program (NKDEP) does not endorse the use of the MDRD equation for patients that are not between the ages of 18 and 70, are , have extremes of body size, muscle mass, or nutritional status, or are non- or non-. According to the National Kidney Foundation, irrespective of diagnosis, the stage of the disease is based on the level of kidney function: Stage Description GFR(mL/min/1.73 m(2)) 1 Kidney damage with normal or decreased GFR 90 2 Kidney damage with mild decrease in GFR 60-89 3 Moderate decrease in GFR 30-59 4 Severe decrease in GFR 15-29 5 Kidney failure <15 (or dialysis) 74 New Reference Range and Interpretation effective 03/27/2002 TnI (ng/ml) INTERPRETATION Less Than 0.06 ng/mL NOT SUPPORTIVE OF DIAGNOSIS OF NE 0.06 - 0.50 ng/ml INDETERMINATE: SUGGEST SERIAL STUDIES IF CLINICALLY INDICATED. Greater than 0.5 ng/mL CONSISTENT WITH DIAGNOSIS OF NE . 75 Recommended INR for Patients on Oral Anticoagulants Prophylaxis 2.0 - 3.0 Treatment of thrombosis 2.0 - 3.0 Prevention of embolism 2.0 - 3.0 Prevention of embolism from prosthetic heart valves 2.5 - 3.5 76 DIAGNOSIS,TREATMENT,AND THERAPY MUST BE BASED ON THE INR VALUE ALONE. Procedures Date CPT Code Description Status 02/11/2018 Mammogram Completed 11/20/2017 Colonoscopy Completed 09/11/2017 04652 EKG Tracing & Interpretation Completed 08/26/2017 41317 Holter Monitor Review (24 hr)dr review & interp only Completed 08/20/2017 26266 ECG Monitor/Recording W/Visual Superimposition Scanning Completed 02/07/2017 Mammogram Completed 11/27/2016 82081 Nerve Conduction 03-04 Studies Completed 11/27/2016 19067 Needle Electromyography Complete, Five Or More Muscles Completed Studied 06/04/2016 14549 Neuroplasty &/Or Transposition; Ulnar Nerve AT Elbow Completed 06/04/2016 63638 Neuroplasty &/Or Transposition; Ulnar Nerve AT Elbow Completed 02/06/2016 Mammogram Completed 01/05/2016 26891 Nerve Conduction 05-06 Studies Completed 01/05/2016 44650 Needle Electromyography Complete, Five Or More Muscles Completed Studied 10/25/2015 21508 TKR Total Knee Replacement Completed 10/25/2015 01728 TKR Total Knee Replacement Completed 10/17/2015 45025 EKG, Interpretation Only Completed 04/19/2015 32979 TKR Total Knee Replacement Completed 04/19/2015 17163 TKR Total Knee Replacement Completed 01/28/2015 Mammogram Completed 01/17/2015 98205 Inject/Drain Joint/Bursa Major W/O US Completed 08/16/2014 21639 Inject/Drain Joint/Bursa Major W/O US Completed 05/06/2014 96191 Inject/Drain Joint/Bursa Major W/O US Completed 01/28/2014 Mammogram Completed 01/25/2014 86129 Inject/Drain Joint/Bursa Major W/O US Completed 11/24/2013 14711 Arthroscopy,Knee,Meniscectomy Media & Lateral Completed 11/24/2013 50397 Arthroscopy,Knee,Meniscectomy Media & Lateral Completed 11/24/2013 43154 Arthroscopy,Knee,Meniscectomy Media & Lateral Completed 11/24/2013 73168 Arthroscopy,Knee,Meniscectomy Media & Lateral Completed 10/15/2013 46079 Rad Exam; Knee, Ap&L Completed 10/15/2013 93641 Rad Exam; Knee, Ap&L Completed 07/14/2013 65928 Inject/Drain Joint/Bursa Major W/O US Completed 03/17/2013 61561 Inject/Drain Joint/Bursa Major W/O US Completed 02/03/2013 87689 Rad Exam; Knee, Ap&L Completed 02/03/2013 34231 Rad Exam; Knee, Ap&L Completed 02/03/2013 92929 Xray Knee 3 Views Completed 02/03/2013 51738 Xray Knee 3 Views Completed 01/09/2013 Mammogram Completed 11/06/2011 Mammogram Completed 10/10/2010 45477 EKG Tracing & Interpretation Completed 07/08/2009 Mammogram Completed 06/14/2009 17112 EKG Tracing & Interpretation Completed 06/29/2008 Bone Mineral Density Test Completed 07/07/2007 Colonoscopy Completed Encounters Type Date Location Provider CPT E/M Dx Office Visit 02/04/2018 4:30p [facility] [place] [address] L95.0 I87.2 D22.5 L81.1 Office Visit 01/10/2018 1:40p [facility] Maureen Patel N.P. 82876 Z00.00 - [place] Z12.31 I10 E03.9 E78.00 H81.10 L98.9 Z23 Office Visit 10/03/2017 10:45a [facility] [place] [address] S50.11xA C.M.A. S50.11xD Office Visit 09/24/2017 2:45p [facility] [place] [address] S50.11xA C.M.A. S50.11xD Office Visit 09/11/2017 3:00p [facility] [place] [address] I47.1 [facility] FACC Office Visit 08/19/2017 3:40p [facility] Maureen Patel N.Isabel. 32477 R00.1 - [place] H81.10 M54.32 I10 Office Visit 02/19/2017 2:30p [facility] [place] [address] G56.21 C.M.A. Office Visit 01/25/2017 8:30a [facility] Of lEi Herrera M.D. 78273 Z47.1 C.M.A. M17.12 M25.562 Z47.1 Z96.652 Office Visit 01/07/2017 9:00a [facility] Maureen Patel N.Alok 97842 Z00.00 - [place] Z12.31 E78.00 E03.9 K21.9 Office Visit 12/12/2016 3:00p [facility] Lacey Carlin, 82838 G56.21 Of C.M.A. M.D. Office Visit 12/11/2016 8:00a [facility] [place] [address] G56.21 Of C.M.A. Office Visit 11/15/2016 8:45a [facility] [place] [address] S50.11xA Of C.M.A. S50.11xD Office Visit 10/04/2016 2:30p [facility] [place] [address] G56.21 C.M.A. S50.11xA S50.11xD Office Visit 09/21/2016 10:40a [facility] [place] [address] L03.90 [place] Office Visit 09/11/2016 9:15a [facility] [place] [address] G56.21 C.M.A. S50.11xA S50.11xD Office Visit 08/28/2016 2:15p [facility] [place] [address] G56.21 C.M.A. S50.11xA S50.11xD Office Visit 08/09/2016 2:15p [facility] [place] [address] S50.11xA C.M.A. G56.21 S50.11xA Office Visit 05/24/2016 2:30p [facility] [place] [address] G56.21 C.M.A. Office Visit 03/23/2016 2:00p [facility] [place] [address] G56.21 C.M.A. Office Visit 02/17/2016 1:30p [facility] [place] [address] G56.21 C.M.A. Office Visit 01/03/2016 9:20a [facility] Maureen Patel, N.P. 83352 Z00.01 - [place] Z12.31 E78.0 E03.9 K21.9 R20.2 N76.2 H81.13 Office Visit 10/05/2015 1:00p [facility] [place] [address] Z01.818 [place] M17.12 G47.30 Office Visit 08/17/2015 10:20a [facility] Maureen Patel N.P. 50698 J20.9 - [place] Office Visit 06/27/2015 2:30p [facility] Eli Herrera M.D. 26972 Z96.651 Of C.M.A. Z96.651 Z47.1 Z47.1 M17.12 M17.12 Office Visit 05/25/2015 11:15a [facility] Herrera M.D. 44632 M17.12 C.M.A. M25.562 M25.462 S83.242D Office Visit 03/31/2015 9:40a [facility] [place] [address] J20.9 - [place] Office Visit 03/28/2015 9:20a [facility] [place] [address] R05 - [place] Office Visit 03/16/2015 11:20a [facility] Maureen Patel N.P. 72986 Z01.818 - [place] M17.0 B35.1 V04.81 Z23 G47.33 Office Visit 03/04/2015 2:45p [facility] Eli Herrera M.D. 33483 715.16 C.M.A. 719.06 719.46 Office Visit 12/31/2014 9:20a [facility] Maureen Patel, N.P. 48511 V70.0 - [place] V76.10 244.9 530.81 272.4 Office Visit 11/02/2014 8:40a [facility] Maureen Patel, N.P. 21838 729.1 - [place] 627.2 Office Visit 09/29/2014 8:40a [facility] Maureen Patel N.P. 61337 627.2 - [place] 729.1 Office Visit 08/16/2014 2:45p [facility] Eli Herrera M.D. 53235 715.96 Of C.M.A. Office Visit 07/07/2014 11:20a [facility] Maureen Patel N.P. 16971 461.9 - [place] Office Visit 05/06/2014 11:00a [facility] Vitaliy Sahu 78294 715.96 Of C.M.A. Rl Daniel Office Visit 01/25/2014 9:00a [facility] Eli Herrera M.D. 90465 715.96 Of C.M.A. 836.0 836.1 717.7 Office Visit 12/30/2013 1:20p [facility] Maureen Patel N.P. 85268 V70.0 - [place] V76.10 244.9 Office Visit 11/17/2013 2:40p [facility] Chery Cheatham M.D. 36793 715.96 - [place] Office Visit 11/13/2013 2:20p [facility] Maureen Patel N.P. 25776 466.0 - [place] Office Visit 10/15/2013 10:15a [facility] Eli Herrera M.D. 39920 719.06 C.M.A. 715.96 Office Visit 08/25/2013 2:45p [facility] Of Lorie Mena RPA-C 19363 715.96 C.M.A. Office Visit 07/14/2013 2:45p [facility] Lorie Mena RPA-Marlys 34786 715.96 C.M.A. Office Visit 07/01/2013 1:20p [facility] Maureen Patel, N.P. 54733 244.9 - [place] 719.46 Office Visit 04/16/2013 2:45p [facility] Of Aristeo Valerio M.D. 81430 715.96 C.M.A. Office Visit 03/17/2013 2:45p [facility] Of Aristeo Valerio M.D. 61892 715.96 C.M.A. Office Visit 02/10/2013 3:40p [facility] Maureen Patel N.P. 25128 466.0 - [place] Office Visit 02/03/2013 8:30a [facility] Aristeo Valerio M.D. 52348 715.96 C.MKo Office Visit 01/20/2013 2:40p [facility] Maureen Patel, N.P. 40696 465.9 - [place] Office Visit 12/29/2012 2:00p [facility] Maureen Patel, N.P. 39802 V70.0 - [place] V76.10 530.81 272.4 244.9 719.46 616.10 Office Visit 08/22/2012 2:20p [facility] Maureen Patel, N.P. 76465 268.9 - [place] 780.52 Office Visit 08/11/2012 2:20p [facility] Maureen Patel, N.P. 03365 780.52 - [place] 719.49 Office Visit 07/25/2012 3:20p [facility] Maureen Patel, N.P. 06373 719.49 - [place] 627.2 Office Visit 05/29/2012 11:40a [facility] Maureen Patel, N.P. 06831 729.1 - [place] Office Visit 12/24/2011 3:00p [facility] Maureen Patel, N.P. 56903 724.5 - [place] Office Visit 10/15/2011 1:40p [facility] Maureen Patel, N.P. 76057 V70.0 - [place] V76.10 244.9 530.81 272.4 709.9 Office Visit 07/31/2011 1:00p [facility] Maureen Patel, N.P. 60981 110.1 - [place] Office Visit 04/25/2011 4:00p DO Not Use Maureen Varn, N.P. 49380 386.11 [facility] V04.81 Office Visit 10/10/2010 8:45a DO Not Use Maureen Varn, 11819 786.50 [facility] N.P. V70.0 V72.31 530.81 244.9 Office Visit 09/26/2010 11:30a DO Not Use Abi Eloise, M.D., 78841 616.2 [facility] FACP Office Visit 01/26/2010 10:30a DO Not Use Maureen Varn, 06234 466.0 [facility] N.P. Office Visit 10/10/2009 10:45a DO Not Use Maureen Varn, 58079 V72.84 [facility] N.P. 706.2 Office Visit 07/27/2009 4:00p DO Not Use [facility] Maureen Varn, 00126 706.2 N.P. Office Visit 06/14/2009 1:45p DO Not Use [facility] Maureen Varn, 61990 V70.0 N.P. 272.4 V04.81 Office Visit 05/23/2009 9:30a DO Not Use [facility] Maureen Varn, 64389 706.2 N.P. Office Visit 09/29/2008 1:30p DO Not Use [facility] Maureen Varn, 63594 466.0 N.P. Office Visit 06/20/2007 9:45a DO Not Use [facility] Abi Navas M.D., 90638 466.0 FACP Plan of Care Future Appointment(s):01/16/2019 2:20 pm - Maureen Patel, N.P. at [facility] - Yrapnlash09/25/2019 10:00 am - Maureen Patel, N.P. at [facility] - Zibojhvmk36/18/2018 - Maureen Patel, N.P.H81.49 Vertigo of central origin, unspecified earNew Xrays:MRI Brain W/WoComments:For your vertigo: I advise you to get on your computer and search [employer]. This should help. I want to get an image of your brain. I will contact you with your results.
[2018-03-16] MEDS ORDERED: Metoclopramide IV* 5 MG/ML 2 ML VIAL IV ONE (09:52)
[2018-03-16] MEDS ORDERED: Meclizine TAB* 12.5 MG PO ONE (09:52)
[2018-03-16] MEDS ORDERED: NS 0.9% 1000 ML* 1,000 ML IV ONE (09:52)
--- NOTE | 2018-03-16 10:05 | ED ---
Dizziness - HPI Summary HPI Summary: This patient is a 62 year old F presenting to [facility] accompanied by with a chief complaint of dizziness that began one week ago. The patient rates the pain 0/10 in severity. Symptoms aggravated by musa maneuver. Symptoms alleviated by nothing. Patient reports vomiting and skin diaphoresis. Patient denies fever, CP, palpitations, and SOB. Pt states she saw her PCP for these symptoms on 03/11/2018, with no relief of symptoms. Pt states she has been previously worked up for her vertigo. - History Of Current Complaint Chief Complaint: EDDizziness Stated Complaint: DIZZINESS Time Seen by Provider: 03/16/18 09:50 Hx Obtained From: Patient Onset/Duration: Still Present Timing: Constant Severity Initially: Mild Severity Currently: Mild Character: Room Spinning Aggravating Factor(s): Other - Musa Maneuver Alleviating Factor(s): Nothing Associated Signs And Symptoms: Positive: Other: - Positive vomiting and skin diaphoresis. Negative fever, CP, palpitations, and SOB - Allergies/Home Medications Allergies/Adverse Reactions: Allergies Allergy/AdvReac Type Severity Reaction Status Date / Time Sulfa (Sulfonamide Allergy Intermediate Rash Verified 03/16/18 09:31 Antibiotics) acetaminophen [From Vicodin] AdvReac Nausea And Verified 03/16/18 09:31 Vomiting hydrocodone [From Vicodin] AdvReac Nausea And Verified 03/16/18 09:31 Vomiting oxycodone AdvReac Nausea And Verified 03/16/18 09:31 Vomiting tramadol AdvReac Nausea And Verified 03/16/18 09:31 Vomiting PMH/Surg Hx/FS Hx/Imm Hx Previously Healthy: No Endocrine/Hematology History: Reports: Hx Thyroid Disease Denies: Hx Diabetes Cardiovascular History: Reports: Hx Hypercholesterolemia Denies: Hx Hypertension, Hx Pacemaker/ICD, Other Cardiovascular Problems/ Disorders Respiratory History: Reports: Hx Sleep Apnea - current CPAP user, compliant GI History: Reports: Hx Gastroesophageal Reflux Disease - CONTROL WITH MEDS Denies: Other GI Disorders History: Denies: Hx Benign Prostatic Hyperplasia Musculoskeletal History: Reports: Hx Arthritis - Osteoarthritis of knees,, Hx Orthopedic Injury - left knee miniscus tear, repaired Denies: Other Musculoskeletal History Sensory History: Reports: Hx Contacts or Glasses - Reading glasses Denies: Hx Glaucoma, Hx Hearing Aid Opthamlomology History: Reports: Hx Contacts or Glasses - Reading glasses Denies: Hx Glaucoma Neurological History: Denies: Other Neuro Impairments/Disorders Psychiatric History: Denies: Hx Panic Disorder - Cancer History Hx Chemotherapy: No Hx Radiation Therapy: No - Surgical History Surgery Procedure, Year, and Place: [email or web address] - [facility]. 11/2013 LEFT KNEE MENISCUS REPAIR, [facility] [place]. 2014 RIGHT TOTAL KNEE REPLACEMENT, [facility]. 10/2015 LEFT TOTAL KNEE REPLACEMENT, [facility] [place]. BILATERAL CARPAL TUNNEL RELEASE, [facility] [place]. 1995 HYSTERECTOMY, [facility] [place]; Right Ulnar Nerve Decompression. 1984 CHOLECYSTECTOMY WITH APPENDECTOMY, [facility] [place]. 1961 TONSILLECTOMY, [facility] [place] Hx Anesthesia Reactions: Yes - USUALLY B/P DROPS; 03/2015-VOMITING Infectious Disease History: No Infectious Disease History: Denies: Traveled Outside the [place] in Last 30 Days - Family History Known Family History: Positive: Cardiac Disease, Other - breast CA - Social History Occupation: Employed Full-time Lives: With Family Alcohol Use: None Hx Substance Use: No Substance Use Type: Reports: None Hx Tobacco Use: No Smoking Status (MU): Never Smoked Tobacco Have You Smoked in the Last Year: No Review of Systems Positive: Skin Diaphoresis. Negative: Fever Negative: Palpitations, Chest Pain Negative: Shortness Of Breath Positive: Vomiting Neurological: Other - Positive dizziness All Other Systems Reviewed And Are Negative: Yes Physical Exam - Summary Physical Exam Summary: GENERAL: Patient is a well-developed and nourished F who is lying comfortable in the stretcher. Patient is not in any acute respiratory distress. HEAD AND FACE: Normocephalic EYES: PERRLA, EOMI x 2. Horizontal nystagmus EARS: Hearing grossly intact. MOUTH: Oropharynx within normal limits. NECK: Supple, trachea is midline, no adenopathy, no JVD, no carotid bruit. CHEST: Symmetric, no tenderness at palpation LUNGS: Clear to auscultation bilaterally. No wheezing or crackles. CVS: Regular rate and rhythm, S1 and S2 present, no murmurs or gallops appreciated. ABDOMEN: Soft, non-tender. Bowel sounds are normal. No abdominal abnormal pulsations. EXTREMITIES: Full ROM in all major joints, no edema, no cyanosis or clubbing. NEURO: Alert and oriented x 3. No acute neurological deficits. Speech is normal and follows commands. Cranial nerves II-XII grossly intact, no dysmetria SKIN: Dry and warm Triage Information Reviewed: Yes Vital Signs On Initial Exam: Initial Vitals Temp Pulse Resp BP Pulse Ox 98.6 F 56 16 147/83 99 03/16/18 09:31 03/16/18 09:31 03/16/18 09:31 03/16/18 09:31 03/16/18 09:31 Vital Signs Reviewed: Yes - [place] Coma Scale Best Eye Response: 4 - Spontaneous Best Motor Response: 6 - Obeys Commands Best Verbal Response: 5 - Oriented Coma Scale Total: 15 Diagnostics - Vital Signs Vital Signs Temp Pulse Resp BP Pulse Ox 03/16/18 09:31 98.6 F 56 16 147/83 99 - Laboratory Result Diagrams: 03/16/18 10:07 03/16/18 10:07 Lab Statement: Any lab studies that have been ordered have been reviewed, and results considered in the medical decision making process. - Radiology CXR Radiology Interpretation Completed By: Radiologist - CXR reveals, per radiologist, no radiographic evidence for acute cardiopulmonary abnormality on this portable chest x-ray. ED physician has reviewed this radiology report. - CT Brain CT CT Interpretation Completed By: Radiologist - Brain CT reveals, per radiologist , normal CT of the brain. ED physician has reviewed this radiology report. - EKG 1024 Cardiac Rate: Bradycardia EKG Rhythm: Sinus Rhythm - 58 BPM EKG Interpretation: nml axis Dizzy Course/Dx - Course Course Of Treatment: This patient is a 62 year old F presenting to [facility] accompanied by with a chief complaint of dizziness that began one week ago. Physical Exam Findings: Horizontal nystagmus. Cranial nerve 2-12 intact. No dysmetria. An EKG taken at 1024 reveals sinus bradycardia at 58 BPM and nml axis. CXR reveals, per radiologist, no radiographic evidence for acute cardiopulmonary abnormality on this portable chest x-ray. Brain CT reveals, per radiologist, normal CT of the brain. Blood work and UA obtained. In the ED course the patient was given fluids, valium, antivert, Reglan, and Benadryl. I discussed results with patient and she reports feeling better. She is hemodynamically stable and safe for discharge. Strict return precautions given and she will otherwise follow up with her PCP. The patient is agreeable with this plan. The pharmacist called to inform me that the patient was given a prescription for Xanax 2 days ago, so I cancelled the prescription for Valium. - Diagnoses Provider Diagnoses: Vertigo Discharge - Sign-Out/Discharge Documenting (check all that apply): Patient Departure - Discharge home - Discharge Plan Condition: Stable Disposition: HOME Prescriptions: Diazepam TAB(*) [Valium TAB(*)] 5 mg PO TID PRN #12 tab MDD 3 PRN Reason: Dizziness Patient Education Materials: Diazepam (By mouth), Vertigo (ED) Forms: *Work Release Referrals: Maureen Patel NP [Primary Care Provider] - 3 Days Additional Instructions: Follow up with your primary care provider in 1-3 days. RETURN TO THE EMERGENCY DEPARTMENT FOR NEW OR WORSENING SYMPTOMS. - Billing Disposition and Condition Condition: STABLE Disposition: Home - Attestation Statements Document Initiated by Scribe: Yes Documenting Scribe: Teodora Langley Provider For Whom Roberto is Documenting (Include Credential): Isabella Fitzgerald MD Scribe Attestation: Teodora Boone, scribed for Isabella Fitzgerald MD on 03/17/18 at 2300. Scribe Documentation Reviewed: Yes Provider Attestation: The documentation as recorded by the Teodora gutierrez accurately reflects the service I personally performed and the decisions made by , Isabella Fitzgerald MD
[2018-03-16] MEDS ORDERED: diPHENhydraMINE IV* 50 MG/ML 1 ml VIAL (BENADRYL) IV ONE (10:12)
[2018-03-16 10:18] LABS: ABS Basophils 0 10^3/ul (0-0.2); ABS Eosinophils 0 10^3/ul (0-0.6); ABS Lymphocytes 1.5 10^3/ul (1.0-4.8); ABS Monocytes 0.4 10^3/ul (0-0.8); ABS Neutrophils 3.7 10^3/ul (1.5-7.7); ABS Nucleated RBC 0 10^3/ul; Eosinophil % 0.8 % (0-6); Hematocrit 47 % (35-47); Hemoglobin 15.5 g/dl (12.0-16.0); Mean Corpuscular HGB Conc 33 g/dl (31-36); Mean Corpuscular Hemoglobin 30 pg (27-31); Mean Corpuscular Volume 92 fL (80-97); Nucleated Red Blood Cells % 0.1; Platelet Count 290 10^3/ul (150-450); Red Blood Count 5.14 10^6/ul (4.00-5.40); Red Cell Distribution Width 14 % (10.5-15); White Blood Count 5.7 10^3/ul (3.5-10.8)
[2018-03-16 10:25] LABS: INR 0.94 (0.77-1.02)
--- NOTE | 2018-03-16 10:30 | RAD ---
INDICATION: Dizziness COMPARISON: Most recent comparison chest x-rays dated June 03, 2017 TECHNIQUE: Single AP portable view of the chest was obtained. FINDINGS: Image quality is compromised due to the relative inferiority of a portable chest x-ray. The heart and mediastinum exhibit normal size and contour. The lungs are grossly clear. There is no evidence of a large pleural effusion. Visualized bones are normal for the patient's age. IMPRESSION: No radiographic evidence for acute cardiopulmonary abnormality on this portable chest x-ray.
[2018-03-16 10:35] LABS: EGFR Non-African American 91.4 (>60)
[2018-03-16] MEDS ORDERED: Diazepam TAB(*) 5 MG PO ONE (12:08)
--- NOTE | 2018-03-16 12:39 | RAD ---
INDICATION: Dizziness COMPARISON: CT of the brain dated June 03, 2017 acquired for a similar indication TECHNIQUE: Contiguous axial sections of the brain were obtained from the skull base to the vertex without contrast. FINDINGS: The ventricles, cisterns and sulci are within normal limits. The molina-white matter differentiation is adequately maintained and there is no sulcal effacement. No significant focal abnormality or mass effect is present. There is no evidence for intracranial hemorrhage. No significant focal osseous abnormality is present. The visualized portion of the paranasal sinuses appear clear. The mastoid air cells are well aerated bilaterally. IMPRESSION: Normal CT of the brain.
[2018-03-16 14:23] VITALS: BP 140/64
[2018-03-16 14:24] LABS: Urine Appearance Clear; Urine Blood Negative (Negative); Urine Color Straw; Urine Ketones Negative (Negative); Urine Protein Negative (Negative); Urine Specific Gravity 1.005 (1.010-1.030); Urine Urobilinogen Negative (Negative)
== END 2018-03-16 14:23 | disposition home or self-care (01) ==
LOC: ED 09:22
DX: R11.10 Vomiting, unspecified (principal); R42 Dizziness and giddiness
CPT/HCPCS: 36415; 70450; 71045; 80053; 81003; 83605; 83735; 83880; 84484; 85025; 85610; 85730; 93005; 99284; A9270-GY; J1200; J2765